=== PATIENT | female | born 1960 | race Caucasian/White ===

== ENCOUNTER → 2017-11-28 | Outpatient (CLI) | payer OTHER ==
[~2017-11-28] MED LIST: METH4PAK4 PO; MOME50SP5; TRAM-10 PO; [UNRECOGNIZED DRUG - OTHER] PO
--- NOTE | 2017-11-28 15:21 | MAMMOGRAPHY REPORT ---
BILATERAL DIGITAL SCREENING MAMMOGRAM TOMOSYNTHESIS WITH CAD: 11/28/2017 CLINICAL HISTORY: Routine screening. Patient has no complaints. TECHNIQUE: Breast tomosynthesis in addition to standard 2D mammography was performed. Current study was also evaluated with a Computer Aided Detection (CAD) system. COMPARISON: Comparison is made to exams dated: 11/10/2015 ultrasound, 11/10/2015 mammogram, 11/01/2015 m ammogram, 10/27/2014 mammogram, 09/01/2013 mammogram, and 08/23/2011 mammogram - [facility] nter. BREAST COMPOSITION: The tissue of both breasts is heterogeneously dense, which may obscure small mas ses. FINDINGS: There are a few benign rim calcifications in the left breast. The grouping of microcalcifi cations in the upper outer posterior left breast has coarsened comparing to prior mammograms and has the appearance of an early rim calcification, suggesting benignity. The 7.4 mm focal asymmetry in th e lower inner left breast appears stable dating back to at least 2013 and with 4 years of stability i s most likely benign. No new suspicious mass, architectural distortion or cluster of microcalcificat ions is seen. IMPRESSION: ACR BI-RADS CATEGORY 1: NEGATIVE There is no mammographic evidence of malignancy. A 1 year screening mammogram is recommended. The pa tient will receive written notification of the results. Approximately 10% of breast cancers are not detected with mammography. A negative mammographic report should not delay biopsy if a clinically suggestive mass is present. Penny Dyer M.D. ay/:11/28/2017 13:02:01 [place] Flaker: Keli Nazario, [facility] letter sent: Normal 1/2 BI-RADS Code: ACR BI-RADS Category 1: Negative
== END | disposition home or self-care (01) ==
LOC: C.MAMM 09:58
PROVIDERS: ATTEND Obstetrics & Gynecology
DX: Z12.31 Encounter for screening mammogram for malignant neoplasm of breast (principal)

== ENCOUNTER 2021-03-19 23:09 | Inpatient (IN) ==
[2021-03-19] MEDS ORDERED: SODIUM CHLORIDE 0.9% 500 ML IV STA (23:33)
[2021-03-19] MEDS ORDERED: SODIUM CHLORIDE 0.9% 1000ML 1,000 ML IV STA (23:33)
[2021-03-19] MEDS ORDERED: HYDROmorphone INJ 0.5 MG/0.5 ML SYR IV STA (23:33)
[2021-03-19] MEDS ORDERED: ONDANSETRON INJ 2 MG/ML 2 ML VIAL IV STA (23:33)
[2021-03-20 01:26] LABS: Basophils # (auto) 0.01 K/uL (0-0.2); Basophils % (auto) 0.1 %; Eosinophils # (auto) 0.07 K/uL (0-0.5); Eosinophils % (auto) 0.7 %; Hematocrit (blood only) 40.8 % (37-47); Hemoglobin 14.9 g/dL (12.0-16.0); Immature Granulocytes # (auto) 0.06 K/uL (0.00-0.02); Immature Granulocytes % (auto) 0.6 %; Lymphocytes # (auto) 0.97 K/uL (1.2-3.4); Lymphocytes % (auto) 9.7 %; Mean Corpuscular Hgb Conc 36.5 g/dL (32-36); Mean Corpuscular Volume 76.7 fL (80-100); Mean Platelet Volume 7.6 fL (7.4-10.4); Monocytes # (auto) 0.91 K/uL (0.11-0.59); Monocytes % (auto) 9.1 %; Neutrophils # (auto) 7.95 K/uL (1.4-6.5); Neutrophils % (auto) 79.8 %; Platelet Count 346 K/uL (130-400); RDW Coefficient of Variation 12.4 % (11.5-14.5); RDW Standard Deviation 34.7 fL (36.4-46.3); Red Blood Count 5.32 M/uL (4.2-5.4); White Blood Count 9.97 K/uL (4.8-10.8)
[2021-03-20] MEDS ORDERED: diphenhydrAMINE 50 MG/ML VIAL IV STA (01:38)
--- NOTE | 2021-03-20 01:39 | Emergency Department Note ---
History of Present Illness General Chief complaint: Abdominal Pain Stated complaint: STOMACH PAIN ON RIGHT SIDE - HER LAST WEEK Source: patient, family () and RN notes reviewed Mode of arrival: ambulatory Limitations: no limitations History of Present Illness Provider complaint: Abdominal pain, constipation Maximum Pain Intensity: 10 This patient is a 60-year-old female who presents to the emergency department with complaints of abdominal pain and constipation. She was here last week for abdominal pain and bloating, told that she had some fecal retention. The patient has been seen by her primary care physician and has been using laxatives and enemas. She states she used 3 enemas this evening and had some liquidy results. Patient states the pain has not resolved. She denies any vomiting but states she has nauseated. She denies any blood in her bowel movements. The pat ient has not had any difficulty with urination. Home Medications Medication Instructions Recorded Confirmed Type 4 Restore 1 tab PO DAILY 03/09/21 03/20/21 History Balance D Vit 5 - 7 tabs PO DAILY 03/09/21 03/20/21 History Eternity Liq 2.5 ml PO DAILY 03/09/21 03/20/21 History Influence Vit 1 tab PO DAILY 03/09/21 03/20/21 History Innerchi Vit 1 tab PO DAILY 03/09/21 03/20/21 History Renorvator 2 1 tab PO DAILY 03/09/21 03/20/21 History Vital Vision Tab 1 tab PO DAILY 03/09/21 03/20/21 History calcium carbonate 500 mg calcium 500 mg PO DAILY 03/09/21 03/20/21 History (1,250 mg) tablet (Calcium 500) cyclobenzaprine 10 mg tablet 10 mg PO TID PRN #14 tab 03/09/21 03/20/21 Rx ibuprofen 200 mg tablet 600 mg PO Q6H PRN 03/09/21 03/20/21 History multivitamin 1 tab PO DAILY 03/09/21 03/20/21 History Allergies Allergy/AdvReac Type Severity Reaction Status Date / Time Penicillins Allergy Severe RASH HIVES Verified 03/20/21 00:08 Sulfa (Sulfonamide Allergy Severe RASH HIVES Verified 03/20/21 00:08 Antibiotics) sulfamethoxazole Allergy Severe RASH HIVES Verified 03/20/21 00:08 trimethoprim Allergy Severe RASH HIVES Verified 03/20/21 00:08 KEFLEX Allergy Severe CHEST Uncoded 03/20/21 00:08 TIGHTNESS SWELLING OF THROAT Past Med/Surg History Medical History Kidney stone Social History Smoking Status: Never smoker Hx Alcohol Use: No Hx Substance Use: No Preferred Language: Persian Communication Ability: Effective Chemical Compounder Required: No Beliefs That Will Affect Care: None Current Living Situation: Spouse Other Information That Helps Us Care for You: No Feels Safe at Home: Yes Safety Concerns: Feels Safe At This Time Review of Systems See HPI for pertinent positives & negatives. and A total of 10 systems reviewed and were otherwise negative Physical Exam Vital Signs Vital Signs - 24 hr 03/19/21 23:14 03/20/21 02:55 03/20/21 02:57 Temperature 36.6 C Temperature Source Temporal Artery Scan Pulse Rate 85 Pulse Rate [Finger] 72 Pulse Rhythm [Finger] Regular Respiratory Rate 18 Respiratory Effort / Characteristics Non-Labored Spontaneous Respiratory Depth Normal Respiratory Pattern Regular Blood Pressure 157/90 H Blood Pressure [Right Arm] 159/86 H Blood Pressure Mean 112 Blood Pressure Mean [Right Arm] 110 Pulse Oximetry 97 96 96 Oxygen Delivery Method Room Air Room Air Room Air Sepsis Recent Fever Within 48 Hours No Sepsis New/Unexplained Change in Mental Status No Sepsis Action Taken by Nursing No Action Required Vital signs reviewed. General: Generally well-appearing 60-year-old female in some discomfort. HEENT: No scleral icterus, PERRLA, neck supple. Atraumatic. Cardiovascular: Regular rate and rhythm, no extra sounds. Pulmonary: Clear to auscultation bilaterally, normal work of breathing. Abdomen: Soft, distended, nontender, positive bowel sounds. Rectal: Small external hemorrhoids, noninflamed, no fissure, no gross blood, guaiac negative stool Musculoskeletal: Atraumatic, no peripheral edema. Neurologic: Patient awake alert and oriented x 3 Skin: Warm, dry, no rash Course Administered Medications Acetaminophen (Acetaminophen 325 Mg Tab) 650 mg PO Q4H PRN PRN Reason: Pain or Fever Stop: 04/19/21 09:31 Last Admin: 03/20/21 10:37 Dose: 650 mg Documented by: [id number] Enoxaparin Sodium (Enoxaparin Inj 40 Mg/0.4 Ml Syr) 40 mg SQ DAILY JEFFERY Stop: 04/19/21 09:59 Last Admin: 03/20/21 10:38 Dose: 40 mg Documented by: [id number] Lactated Ringer's (Lr) 1,000 mls @ 50 mls/hr IV .Q20H JEFFERY Stop: 04/19/21 11:44 Last Admin: 03/20/21 12:08 Dose: 50 mls/hr Documented by: [id number] Morphine Sulfate (Morphine Sulfate 2 Mg/Ml Carp) 1 mg IV Q4 PRN PRN Reason: Pain Stop: 04/03/21 11:43 Last Admin: 03/20/21 15:44 Dose: 1 mg Documented by: [id number] Admin: 03/20/21 12:52 Dose: 1 mg Documented by: [id number] Discontinued Medications Benzocaine/Butamben/Tetracaine HCl (Benzocaine/Tetracain/Butam Can 200 Appln/20 Gm Can) 1 appln EXT NOW STA Stop: 03/20/21 03:45 Last Admin: 03/20/21 04:52 Dose: Not Given Documented by: [id number] Diphenhydramine HCl (Diphenhydramine 50 Mg/Ml Vial) 25 mg IV NOW STA Stop: 03/20/21 01:39 Last Admin: 03/20/21 02:14 Dose: 25 mg Documented by: [id number] Hydromorphone HCl (Hydromorphone Inj 0.5 Mg/0.5 Ml Syr) 0.5 mg IV NOW STA Stop: 03/19/21 23:34 Last Admin: 03/20/21 01:23 Dose: 0.5 mg Documented by: [id number] Hydromorphone HCl (Hydromorphone Inj 0.5 Mg/0.5 Ml Syr) 0.5 mg IV NOW STA Stop: 03/20/21 03:24 Last Admin: 03/20/21 03:39 Dose: 0.5 mg Documented by: [id number] Hydromorphone HCl (Hydromorphone Inj 0.5 Mg/0.5 Ml Syr) 0.5 mg IV NOW STA Stop: 03/20/21 05:44 Last Admin: 03/20/21 05:49 Dose: 0.5 mg Documented by: [id number] Sodium Chloride (Nss 1000ml) 1,000 mls @ 125 mls/hr IV .Q8H STA Stop: 03/20/21 07:32 Last Admin: 03/20/21 02:18 Dose: Not Given Documented by: [id number] Sodium Chloride (Nss) 500 mls @ 999 mls/hr IV .Q31M STA Stop: 03/20/21 00:03 Last Infusion: 03/20/21 02:03 Dose: 0 mls/hr Documented by: [id number] Admin: 03/20/21 01:22 Dose: 999 mls/hr Documented by: [id number] Acetaminophen (Ofirmev) 1,000 mg in 100 mls @ 400 mls/hr IV NOW STA Stop: 03/20/21 02:11 Last Infusion: 03/20/21 02:29 Dose: 0 mls/hr Documented by: [id number] Admin: 03/20/21 02:13 Dose: 400 mls/hr Documented by: [id number] Sodium Chloride (Nss 1000ml) 1,000 mls @ 50 mls/hr IV .Q20H JEFFERY Stop: 04/19/21 06:19 Last Infusion: 03/20/21 10:25 Dose: 0 mls/hr Documented by: [id number] Admin: 03/20/21 06:32 Dose: 50 mls/hr Documented by: [id number] Ioversol (Optiray 320 100ml) 94 ml IV ONCE ONE Stop: 03/20/21 03:12 Last Admin: 03/20/21 03:12 Dose: 94 ml Documented by: [id number] Ondansetron HCl (Ondansetron Inj 2 Mg/Ml 2 Ml Vial) 4 mg IV NOW STA Stop: 03/19/21 23:34 Last Admin: 03/20/21 01:23 Dose: 4 mg Documented by: [id number] Medical Decision Making Differential Diagnosis Appendicitis, PID, infections, diverticulitis, UTI, obstruction, mesenteric isc hemia, aortic pathology, inflammatory bowel disease, renal colic, PUD, pancreatitis, biliary pathology, hernia, volvulus, constipation, as well as other pathologies. Medical Records Attestation: I reviewed the patient's medical records. Home Medications Current Medication List: was personally reviewed by me Laboratory Data Attestation: I reviewed the patient's lab results. Result diagrams: 03/20/21 07:42 07/25/21 14:46 Lab Results 03/20/21 03/20/21 03/20/21 Range/Units 01:14 01:14 01:14 WBC 9.97 (4.8-10.8) K/uL RBC 5.32 (4.2-5.4) M/uL Hgb 14.9 (12.0-16.0) g/dL Hct 40.8 (37-47) % MCV 76.7 L (80-100) fL MCH 28.0 (25-34) pg MCHC 36.5 H (32-36) g/dL RDW Std Deviation 34.7 L (36.4-46.3) fL RDW Coeff of Sharyn 12.4 (11.5-14.5) % Plt Count 346 (130-400) K/uL MPV 7.6 (7.4-10.4) fL Immature Gran % (Auto) 0.6 % Neut % (Auto) 79.8 % Lymph % (Auto) 9.7 % Den[place] % (Auto) 9.1 % Eos % (Auto) 0.7 % Baso % (Auto) 0.1 % Neut # (Auto) 7.95 H (1.4-6.5) K/uL Lymph # (Auto) 0.97 L (1.2-3.4) K/uL Denali # (Auto) 0.91 H (0.11-0.59) K/uL Eos # (Auto) 0.07 (0-0.5) K/uL Baso # (Auto) 0.01 (0-0.2) K/uL Immature Gran # (Auto) 0.06 H (0.00-0.02) K/uL Sodium 114 L* (136-145) mmol/L Potassium 4.2 (3.5-5.1) mmol/L Chloride 79 L (98-107) mmol/L Carbon Dioxide 28 (21-32) mmol/L Anion Gap 7.0 (3-11) BUN 7 (7-18) mg/dl Creatinine 0.57 L (0.6-1.2) mg/dl Est Cr Clr Drug Dosing 91.6 ml/min Est GFR ( Amer) 116.8 ml/min Est GFR (Non-Af Amer) 100.8 ml/min BUN/Creatinine Ratio 11.3 (10-20) Glucose 115 H (70-99) mg/dl Osmolality 244 L (280-300) mOsm/kg Calcium 9.2 (8.5-10.1) mg/dl Total Bilirubin 0.9 (0.2-1) mg/dl AST 28 (15-37) U/L ALT 74 (12-78) U/L Alkaline Phosphatase 126 H (45-117) U/L Total Protein 7.8 (6.4-8.2) gm/dl Albumin 3.7 (3.4-5.0) gm/dl Globulin 4.1 H (2.5-4.0) gm/dl Albumin/Globulin Ratio 0.9 (0.9-2) Lipase 266 (73-393) U/L COVID-19 Eval Order SARS-CoV-2 (PCR) (Negative) 03/20/21 03/20/21 03/20/21 Range/Units 02:26 02:55 02:55 WBC (4.8-10.8) K/uL RBC (4.2-5.4) M/uL Hgb (12.0-16.0) g/dL Hct (37-47) % MCV (80-100) fL MCH (25-34) pg MCHC (32-36) g/dL RDW Std Deviation (36.4-46.3) fL RDW Coeff of Sharyn (11.5-14.5) % Plt Count (130-400) K/uL MPV (7.4-10.4) fL Immature Gran % (Auto) % Neut % (Auto) % Lymph % (Auto) % Denali % (Auto) % Eos % (Auto) % Baso % (Auto) % Neut # (Auto) (1.4-6.5) K/uL Lymph # (Auto) (1.2-3.4) K/uL Denali # (Auto) (0.11-0.59) K/uL Eos # (Auto) (0-0.5) K/uL Baso # (Auto) (0-0.2) K/uL Immature Gran # (Auto) (0.00-0.02) K/uL Sodium 117 L* (136-145) mmol/L Potassium (3.5-5.1) mmol/L Chloride (98-107) mmol/L Carbon Dioxide (21-32) mmol/L Anion Gap (3-11) BUN (7-18) mg/dl Creatinine (0.6-1.2) mg/dl Est Cr Clr Drug Dosing ml/min Est GFR ( Amer) ml/min Est GFR (Non-Af Amer) ml/min BUN/Creatinine Ratio (10-20) Glucose (70-99) mg/dl Osmolality (280-300) mOsm/kg Calcium (8.5-10.1) mg/dl Total Bilirubin (0.2-1) mg/dl AST (15-37) U/L ALT (12-78) U/L Alkaline Phosphatase (45-117) U/L Total Protein (6.4-8.2) gm/dl Albumin (3.4-5.0) gm/dl Globulin (2.5-4.0) gm/dl Albumin/Globulin Ratio (0.9-2) Lipase (73-393) U/L COVID-19 Eval Order Covid19 at [facility] SARS-CoV-2 (PCR) NEGATIVE (Negative) Imaging Data Radiologist's Impression: Abdomen/Pelvis CT 03/19/21 23:33 CT OF THE ABDOMEN AND PELVIS WITH CONTRAST CLINICAL HISTORY: Right lower quadrant abdominal pain. COMPARISON STUDY: CT of the abdomen pelvis March 09, 2021. TECHNIQUE: Following IV administration of 94 mL of Optiray, axial images of the abdomen and pelvis were obtained from the lung bases to the proximal femurs. Images were reviewed in the axial, sagittal, and coronal planes. IV contrast was administered without complication. Automated exposure control was utilized for the study. A dose lowering technique was utilized adhering to the principles of ALARA. CT DOSE: 313.80 mGy.cm FINDINGS: Lung bases are unremarkable. There is a small hiatal hernia. Several subcentimeter hypodense hepatic lesions favor cysts. The spleen, adrenal glands and pancreas are unremarkable. There is no biliary or pancreatic ductal dilatation. Several subcentimeter renal lesions are too small to characterize but favor cysts. Previously described renal calculi are obscured by excreted contrast. There is no hydronephrosis. No pneumatosis, free air or portal venous gas is present. The appendix is normal. The colon is now moderately distended and fluid-filled with transition point at the junction of the descending colon and the sigmoid colon. No lesion at this site is identified by CT. This dilatation is new since CT of March 09, 2021. There is mild wall thickening of the cervical rectum. Major vasculature is patent. No lymphadenopathy. No acute fracture or suspicious lesion is identified within the visualized skeletal structures. IMPRESSION: 1. Moderately distended fluid-filled colon which suggests a diarrheal state. Apparent transition point at the junction of the descending colon and sigmoid colon. No lesion identified by CT. A colonic obstruction is considered less likely but cannot be excluded and radiographic follow-up is recommended to ensure resolution. This finding will be contrast faxed to the ordering provider at time of dictation. 2. Mild wall thickening of the sigmoid colon and rectum which may reflect a coli tis. ACT 112: Negative or not required by law. Electronically signed by: Ramon Swanson M.D. 03/20/2021 7:13 AM Blood Pressure Blood Pressure Findings: Elevated blood pressure Blood Pressure Disposition: further management by hospitalist MDM Narrative This patient was evaluated and appeared to be in some discomfort. IV access was obtained but difficult so delayed. Patient was hydrated with normal saline solution. An order for cardiac monitoring was placed and the patient is noted to be in a sinus rhythm at 82 bpm. Patient was medicated with IV Dilaudid and Zofran for her discomfort. She did receive IV Tylenol for additional pain control and IV Benadryl prior to receiving IV contrast for the CT scan. CT imaging reveals distended fluid-filled colon without evidence of obstruction. Patient stomach is dilated. Laboratory work reveals a profound hyponatremia at 114, likely secondary to laxative and enema overuse. I suspect this is the etio logy of the patient's distended bowel and fluid-filled colon as well. An NG tube was passed to decompress the bowel. IV fluids were stopped and a sodium rechecked. Repeat sodium was 117. Patient's case was discussed with the hospitalist service for further management. Patient and were informed of the findings and agreed with the plan. She was given additional pain medication. 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
[2021-03-20] MEDS ORDERED: ACETAMINOPHEN 1,000 MG/100 ML VIAL IV STA (01:57)
[2021-03-20 02:04] LABS: Albumin Globulin Ratio 0.9 (0.9-2); Albumin Level 3.7 gm/dl (3.4-5.0); BUN Creatinine Ratio 11.3 (10-20); Bilirubin,Total 0.9 mg/dl (0.2-1); Calcium 9.2 mg/dl (8.5-10.1); Creatinine Clr Calc Pharmacy 91.6 ml/min; Est GFR (African American) 116.8 ml/min; Est GFR (Non-African American) 100.8 ml/min; Globulin 4.1 gm/dl (2.5-4.0); Potassium 4.2 mmol/L (3.5-5.1); Total Protein 7.8 gm/dl (6.4-8.2)
[2021-03-20 03:11] LABS: Appearance Urine Clear (Clear); Bilirubin Urine Negative (Negative); Blood Urine Negative (Negative); Color Urine Yellow; Glucose Urine UA Negative (Negative); Ketones Urine Trace (Negative); Leukocyte Esterase Urine Negative (Negative); Nitrite Urine Negative (Negative); Protein Urine Negative (Negative); Specific Gravity Urine 1.005 (1.000-1.030); Urobilinogen Urine Negative (Negative); pH Urine 8.5 (4.5-7.5)
[2021-03-20] MEDS ORDERED: OPTIRAY 320 100ml IV ONE (03:11)
[2021-03-20] MEDS ORDERED: HYDROmorphone INJ 0.5 MG/0.5 ML SYR IV STA ×2 (03:23→05:43)
[2021-03-20] MEDS ORDERED: BENZOCAINE/TETRACAIN/BUTAM CAN 200 APPLN/20 GM CAN EXT STA (03:44)
--- NOTE | 2021-03-20 05:21 | History and Physical Report ---
DATE OF ADMISSION: 03/20/21 CHIEF COMPLAINT: Abdominal pain and constipation. HISTORY OF PRESENT ILLNESS: A 60-year-old female with past medical history significant for constipation, presents with abdominal pain. The patient was here in the ER on 03/09/2021 with the same abdominal pain, bilateral flank pain, nausea and she was evaluated in the ER and CAT scan of the abdomen and pelvis and CT of the chest were done, which were mostly unremarkable except for some constipation and 5 mm pulmonary nodule and left side nephrolithiasis. The patient was discharged home to followup with PCP. She also saw her PCP, on p.o. lactulose. Still she says she did not move her bowels much since last 2 weeks.Had 2 enemas yesterday and she had a small amount of bowel movement, but not much significant. She is also having lot of nausea and she is not able to eat anything. Having abdominal pain which is about 8/10 in severity all over her belly. She came to the ER again today and found to have sodium of 114 and in the ER was given some fluids, before labs and repeat sodium after a couple of hours showed 117. Her sodium was 129 last time she was here in 03/09/2021. We do not have any recent lab work in the [facility]. Denies any blood in the stool. She says she has some hemorrhoids and some blood on the wipes but otherwise no significant bleeding. She is urinating ok but says urine looks somewhat different. No pain while micturating. No chest pain, no shortness of breath, no cough, no fever, no chills, no chest pain, no headache, no earache, no runny nose. She has some blurred vision, no sore throat. She says when she eats, she feels that food is stuck in her throat. Currently, hemodynamics are stable. ALLERGIES: PENICILLIN, SULFA ANTIBIOTICS, KEFLEX. PAST MEDICAL HISTORY: As mentioned above. PAST SURGICAL HISTORY: Biopsy of the left breast mass, colonoscopy, EGD, hysteroscopy, endometrial ablation, excision of sebaceous cyst, ligation of oviducts. MEDICATIONS: As per [facility], she is on Linzess 145 mcg p.o. daily, cyclobenzaprine 10 mg p.o. daily, lactulose 15 mL b.i.d. p.r.n., Zofran 8 mg p.o. q. 8 hours p.r.n., multivitamins 1 tablet daily, ibuprofen p.r.n. FAMILY HISTORY: Significant for sister has breast cancer; uncle has lymphoma; father has diabetes and diverticulitis; mother has diverticulitis and osteoporosis. SOCIAL HISTORY: . Quit smoking in 1989, smoked 1 pack a day for 10 years. No alcohol use. No drug use. REVIEW OF SYSTEMS: As per HPI. Rest of review of systems is negative. PHYSICAL EXAMINATION: GENERAL: The patient is of moderate build, not in acute distress. VITAL SIGNS: Temperature 36.6, pulse 72, respiratory rate 18, blood pressure 115/86, oxygen 96% on room air. HEENT: Pupils equal, round and reactive to light. Oral mucosa moist. NECK: No JVD, no neck masses. HEART: S1 and S2 heard. Regular rate and rhythm. No murmur, no gallop. RESPIRATORY: Normal AP diameter. No accessory muscle use. No wheezing, no crackles. ABDOMEN: Soft, bowel sounds present. Diffuse tenderness, guarding present. No rigidity, no distention. CENTRAL NERVOUS SYSTEM: Cranial nerves II-XII grossly intact, nonfocal. EXTREMITIES: No edema, no erythema. LABORATORY DATA: WBC 9.9, hemoglobin 14.9, hematocrit 40.8, platelets 346. Sodium was 114, currently 117, potassium 4.2, chloride 79, bicarbonate 28, BUN 7, creatinine 0.5, serum glucose 115, calcium 9.2, total bilirubin 0.9, AST 28, ALT 74, alkaline phosphatase 126, lipase 266. Urinalysis: Trace ketones. Urine pH is elevated at 8.5. SARS-CoV-2 PCR negative. IMAGING DATA: CT of the abdomen and pelvis report is pending. ASSESSMENT AND PLAN: This 60-year-old female presents with ongoing constipation, abdominal pain. 1. Constipation, abdominal pain. Abdominal pain etiology unclear. The patient has a history of constipation but this is the worst she had. After start of stool softeners and enema she had a couple of bowel movements today, but not much. because of ongoing constipation and abdominal pain will consult GI. We will follow the CAT scan results. Monitor in the med tele. 2. Hyponatremia. When she came in sodium of 114, last time when she was here in 03/09/2021 it was 129. With some fluids it increased to 117 in the ER. The patient has nausea. Probably from poor oral intake To correct sodium slowly not more than 6-8 meq per day. We will follow BMP q. [address] on gentle fluids, normal saline 50 mL per hour. Follow urine osmolality, serum osmolality and urine sodium levels. We will consult nephrology to help with correction of the sodium. 3. Deep venous thrombosis prophylaxis. Sequential compression devices for Lovenox. DISPOSITION: Closely monitor in the med tele. Level 1 full code. Expect to discharge home and follow with family doctor. Job ID: [id number] [facility]
[2021-03-20] MEDS ORDERED: SODIUM CHLORIDE 0.9% 1000ML 1,000 ML IV SCH (06:20)
--- NOTE | 2021-03-20 07:14 | CT Scan Report ---
CT OF THE ABDOMEN AND PELVIS WITH CONTRAST CLINICAL HISTORY: Right lower quadrant abdominal pain. COMPARISON STUDY: CT of the abdomen pelvis March 09, 2021. TECHNIQUE: Following IV administration of 94 mL of Optiray, axial images of the abdomen and pelvis we re obtained from the lung bases to the proximal femurs. Images were reviewed in the axial, sagittal, and coronal planes. IV contrast was administered without complication. Automated exposure control wa s utilized for the study. A dose lowering technique was utilized adhering to the principles of ALARA . CT DOSE: 313.80 mGy.cm FINDINGS: Lung bases are unremarkable. There is a small hiatal hernia. Several subcentimeter hypodens e hepatic lesions favor cysts. The spleen, adrenal glands and pancreas are unremarkable. There is no biliary or pancreatic ductal dilatation. Several subcentimeter renal lesions are too small to charact erize but favor cysts. Previously described renal calculi are obscured by excreted contrast. There is no hydronephrosis. No pneumatosis, free air or portal venous gas is present. The appendix is normal. The colon is now moderately distended and fluid-filled with transition point at the junction of the descending colon and the sigmoid colon. No lesion at this site is identified by CT. This dilatation i s new since CT of March 09, 2021. There is mild wall thickening of the cervical rectum. Major vasculat ure is patent. No lymphadenopathy. No acute fracture or suspicious lesion is identified within the vi sualized skeletal structures. IMPRESSION: 1. Moderately distended fluid-filled colon which suggests a diarrheal state. Apparent transition poin t at the junction of the descending colon and sigmoid colon. No lesion identified by CT. A colonic ob struction is considered less likely but cannot be excluded and radiographic follow-up is recommended to ensure resolution. This finding will be contrast faxed to the ordering provider at time of dictati on. 2. Mild wall thickening of the sigmoid colon and rectum which may reflect a colitis. ACT 112: Negative or not required by law. Electronically signed by: Ramon Swanson M.D. 03/20/2021 7:13 AM
[2021-03-20 07:53] LABS: Basophils # (auto) 0.01 K/uL (0-0.2); Basophils % (auto) 0.1 %; Eosinophils # (auto) 0.15 K/uL (0-0.5); Eosinophils % (auto) 1.5 %; Hematocrit (blood only) 41.3 % (37-47); Hemoglobin 15.1 g/dL (12.0-16.0); Immature Granulocytes # (auto) 0.07 K/uL (0.00-0.02); Immature Granulocytes % (auto) 0.7 %; Lymphocytes # (auto) 1.07 K/uL (1.2-3.4); Lymphocytes % (auto) 10.6 %; Mean Corpuscular Hemoglobin 27.8 pg (25-34); Mean Corpuscular Hgb Conc 36.6 g/dL (32-36); Mean Corpuscular Volume 75.9 fL (80-100); Mean Platelet Volume 7.8 fL (7.4-10.4); Monocytes # (auto) 0.76 K/uL (0.11-0.59); Monocytes % (auto) 7.5 %; Neutrophils # (auto) 8.04 K/uL (1.4-6.5); Neutrophils % (auto) 79.6 %; Platelet Count 307 K/uL (130-400); RDW Coefficient of Variation 12.5 % (11.5-14.5); RDW Standard Deviation 34.5 fL (36.4-46.3); Red Blood Count 5.44 M/uL (4.2-5.4)
[2021-03-20 08:26] LABS: Est GFR (African American) 116.1 ml/min; Est GFR (Non-African American) 100.2 ml/min; Magnesium 2.3 mg/dl (1.8-2.4); Potassium 3.9 mmol/L (3.5-5.1)
[2021-03-20 08:36] LABS: BUN Creatinine Ratio 8.6 (10-20); Calcium 9.5 mg/dl (8.5-10.1)
[2021-03-20] MEDS ORDERED: NITROGLYCERIN SL 0.4 MG/TAB TAB SL PRN (09:32)
[2021-03-20] MEDS: ACETAMINOPHEN 325 MG TAB PO PRN (10:37)
--- NOTE | 2021-03-20 10:37 | Gastrointestinal Consultation ---
Date of Consultation March 20, 2021 Assessment & Plan (1) Acute hyponatremia: Patient presenting with constipation and abdominal discomfort. She is found to have a markedly low sodium level. Perhaps this is contributing to her present symptoms of constipation. I think the first goal of therapy should be to correct the patient's electrolytes, would double check to be sure that her magnesium levels were normal as well. Perhaps the patient has SIADH and may benefit from evaluation by endocrinology or perhaps even pulmonary given the lung nodule seen on her CT scan in the recent past. Recommendations Continue to correct sodium Consider obtaining a magnesium level if not done already Consider pulmonary consultation for evaluation of the lung nodules Consider an endocrinology evaluation for SIADH Once electrolytes corrected would then recommend use of MiraLAX 17 g 3 times daily for 1 week and Colace 200 mg/day Patient may ultimately benefit from a repeat colonoscopy History of Present Illness Reason for Consultation: Constipation Requesting Physician: Dr. Dean Attending Physician: Marcelino Dean MD History of Present Illness The patient is a 60-year-old female who notes that she has had worsening constipation over the last 6 to 9 months. She did have a prior colonoscopy performed in [address] Veena Alvarado without any specific findings. She notes that she was recently started on both lactulose and Linzess by her primary care provider without much benefit. She had been using enemas at home over the last few days but notes that her symptoms were refractory to this. Of note during her initial evaluation she was found to have a slight reduction in her sodium which is now dangerously low. The patient reports no new antibiotics or supplements being used. The patient reported having nausea and bloating and therefore had an NG tube placed last evening while in the emergency room. She notes this initially helped her symptoms however they seem to be progressing this morning. The patient is a smoker with a history of emphysema. She did have a CT scan of her chest which showed several pulmonary nodules. Allergies Allergy/AdvReac Type Severity Reaction Status Date / Time Penicillins Allergy Severe RASH HIVES Verified 03/20/21 00:08 Sulfa (Sulfonamide Allergy Severe RASH HIVES Verified 03/20/21 00:08 Antibiotics) sulfamethoxazole Allergy Severe RASH HIVES Verified 03/20/21 00:08 trimethoprim Allergy Severe RASH HIVES Verified 03/20/21 00:08 KEFLEX Allergy Severe CHEST Uncoded 03/20/21 00:08 TIGHTNESS SWELLING OF THROAT Home Medications Medication Instructions Recorded Confirmed Type 4 Restore 1 tab PO DAILY 03/09/21 03/20/21 History Balance D Vit 5 - 7 tabs PO DAILY 03/09/21 03/20/21 History Eternity Liq 2.5 ml PO DAILY 03/09/21 03/20/21 History Influence Vit 1 tab PO DAILY 03/09/21 03/20/21 History Innerchi Vit 1 tab PO DAILY 03/09/21 03/20/21 History Renorvator 2 1 tab PO DAILY 03/09/21 03/20/21 History Vital Vision Tab 1 tab PO DAILY 03/09/21 03/20/21 History calcium carbonate 500 mg calcium 500 mg PO DAILY 03/09/21 03/20/21 History (1,250 mg) tablet (Calcium 500) cyclobenzaprine 10 mg tablet 10 mg PO TID PRN #14 tab 03/09/21 03/20/21 Rx ibuprofen 200 mg tablet 600 mg PO Q6H PRN 03/09/21 03/20/21 History multivitamin 1 tab PO DAILY 03/09/21 03/20/21 History Patient History Medical History Kidney stone Social History Smoking Status: Never smoker Hx Alcohol Use: No Hx Substance Use: No Preferred Language: Ethiopian Communication Ability: Effective Institute Director Required: No Beliefs That Will Affect Care: None Current Living Situation: Spouse Other Information That Helps Us Care for You: No Feels Safe at Home: Yes Safety Concerns: Feels Safe At This Time Review of Systems Constitutional: + malaise; no fever, no sweats, no body aches and no weight loss Eyes: no diplopia Ear, Nose, Mouth, Throat: no ear trauma Respiratory: no change in sputum and no hemoptysis Cardiovascular: no chest pain with activity and no dyspnea at rest Gastrointestinal: + abdominal pain, + bloating, + nausea and + constipation Genitourinary: no urinary frequency Musculoskeletal: no radicular pain Integumentary: no rash Neurologic: no falls and no paralysis Psychiatric: no hopelessness Endocrine: no polydipsia Hematologic / Lymphatic: no coagulopathy Physical Exam Constitutional: WD/WN, vitals as above Eyes: PERRL, conjunctivae normal, anicteric sclerae Neck: trachea midline, no thyromegaly Respiratory: normal respiratory effort, lungs clear to auscultation Cardiovascular: Rate/Rhythm: regular rate Gastrointestinal (Abdomen): Percussion/Palpation: + abdomen tender and abdomen soft; no guarding and abdomen not rigid Musculoskeletal: no cyanosis or clubbing, extremities motor strength 5/5 Skin: no rashes, warm and dry Neurologic: Speech / Cognition: normal speech Psychiatric: Orientation: oriented x 3 Results & Data ([facility]) Vital Signs (Past 12 Hours) Vital Signs Temp Pulse Pulse Resp BP BP Pulse Ox 03/20/21 09:32 36.5 C 75 18 162/87 H 98 03/20/21 06:07 69 156/93 H 98 03/20/21 04:55 82 152/89 H 99 03/20/21 02:57 96 03/20/21 02:55 72 159/86 H 96 03/19/21 23:14 36.6 C 85 18 157/90 H 97 Laboratory Results Laboratory Results - last 24 hr 03/20/21 03/20/21 03/20/21 01:14 01:14 01:14 WBC 9.97 RBC 5.32 Hgb 14.9 Hct 40.8 MCV 76.7 L MCH 28.0 MCHC 36.5 H RDW Std Deviation 34.7 L RDW Coeff of Sharyn 12.4 Plt Count 346 MPV 7.6 Immature Gran % (Auto) 0.6 Neut % (Auto) 79.8 Lymph % (Auto) 9.7 [place] % (Auto) 9.1 Eos % (Auto) 0.7 Baso % (Auto) 0.1 Neut # (Auto) 7.95 H Lymph # (Auto) 0.97 L [place] # (Auto) 0.91 H Eos # (Auto) 0.07 Baso # (Auto) 0.01 Immature Gran # (Auto) 0.06 H Sodium 114 L* Potassium 4.2 Chloride 79 L Carbon Dioxide 28 Anion Gap 7.0 BUN 7 Creatinine 0.57 L Est Cr Clr Drug Dosing 91.6 Est GFR ( Amer) 116.8 Est GFR (Non-Af Amer) 100.8 BUN/Creatinine Ratio 11.3 Glucose 115 H Osmolality 244 L Calcium 9.2 Magnesium Total Bilirubin 0.9 AST 28 ALT 74 Alkaline Phosphatase 126 H Total Protein 7.8 Albumin 3.7 Globulin 4.1 H Albumin/Globulin Ratio 0.9 Lipase 266 Urine Color Urine Appearance Urine pH Ur Specific [place] Urine Protein Urine Glucose (UA) Urine Ketones Urine Blood Urine Nitrite Urine Bilirubin Urine Urobilinogen Ur Leukocyte Esterase Urine Osmolality Ur Random Sodium COVID-19 Eval Order SARS-CoV-2 (PCR) 03/20/21 03/20/21 03/20/21 02:26 02:55 02:55 WBC RBC Hgb Hct MCV MCH MCHC RDW Std Deviation RDW Coeff of Sharyn Plt Count MPV Immature Gran % (Auto) Neut % (Auto) Lymph % (Auto) [place] % (Auto) Eos % (Auto) Baso % (Auto) Neut # (Auto) Lymph # (Auto) [place] # (Auto) Eos # (Auto) Baso # (Auto) Immature Gran # (Auto) Sodium 117 L* Potassium Chloride Carbon Dioxide Anion Gap BUN Creatinine Est Cr Clr Drug Dosing Est GFR ( Amer) Est GFR (Non-Af Amer) BUN/Creatinine Ratio Glucose Osmolality Calcium Magnesium Total Bilirubin AST ALT Alkaline Phosphatase Total Protein Albumin Globulin Albumin/Globulin Ratio Lipase Urine Color Urine Appearance Urine pH Ur Specific [place] Urine Protein Urine Glucose (UA) Urine Ketones Urine Blood Urine Nitrite Urine Bilirubin Urine Urobilinogen Ur Leukocyte Esterase Urine Osmolality Ur Random Sodium COVID-19 Eval Order Covid19 at [facility] SARS-CoV-2 (PCR) NEGATIVE 03/20/21 03/20/21 03/20/21 07:42 07:42 Unknown WBC 10.10 RBC 5.44 H Hgb 15.1 Hct 41.3 MCV 75.9 L MCH 27.8 MCHC 36.6 H RDW Std Deviation 34.5 L RDW Coeff of Sharyn 12.5 Plt Count 307 MPV 7.8 Immature Gran % (Auto) 0.7 Neut % (Auto) 79.6 Lymph % (Auto) 10.6 [place] % (Auto) 7.5 Eos % (Auto) 1.5 Baso % (Auto) 0.1 Neut # (Auto) 8.04 H Lymph # (Auto) 1.07 L [place] # (Auto) 0.76 H Eos # (Auto) 0.15 Baso # (Auto) 0.01 Immature Gran # (Auto) 0.07 H Sodium 117 L* Potassium 3.9 Chloride 82 L Carbon Dioxide 28 Anion Gap 8.0 BUN 5 L Creatinine 0.58 L Est Cr Clr Drug Dosing 90.0 Est GFR ( Amer) 116.1 Est GFR (Non-Af Amer) 100.2 BUN/Creatinine Ratio 8.6 L Glucose 101 H Osmolality Calcium 9.5 Magnesium 2.3 Total Bilirubin AST ALT Alkaline Phosphatase Total Protein Albumin Globulin Albumin/Globulin Ratio Lipase Urine Color Yellow Urine Appearance Clear Urine pH 8.5 H Ur Specific [place] 1.005 Urine Protein Negative Urine Glucose (UA) Negative Urine Ketones Trace H Urine Blood Negative Urine Nitrite Negative Urine Bilirubin Negative Urine Urobilinogen Negative Ur Leukocyte Esterase Negative Urine Osmolality Ur Random Sodium COVID-19 Eval Order SARS-CoV-2 (PCR) 03/20/21 03/20/21 Unknown Unknown WBC RBC Hgb Hct MCV MCH MCHC RDW Std Deviation RDW Coeff of Sharyn Plt Count MPV Immature Gran % (Auto) Neut % (Auto) Lymph % (Auto) [place] % (Auto) Eos % (Auto) Baso % (Auto) Neut # (Auto) Lymph # (Auto) [place] # (Auto) Eos # (Auto) Baso # (Auto) Immature Gran # (Auto) Sodium Potassium Chloride Carbon Dioxide Anion Gap BUN Creatinine Est Cr Clr Drug Dosing Est GFR ( Amer) Est GFR (Non-Af Amer) BUN/Creatinine Ratio Glucose Osmolality Calcium Magnesium Total Bilirubin AST ALT Alkaline Phosphatase Total Protein Albumin Globulin Albumin/Globulin Ratio Lipase Urine Color Urine Appearance Urine pH Ur Specific [place] Urine Protein Urine Glucose (UA) Urine Ketones Urine Blood Urine Nitrite Urine Bilirubin Urine Urobilinogen Ur Leukocyte Esterase Urine Osmolality 260 L Ur Random Sodium 66 COVID-19 Eval Order SARS-CoV-2 (PCR) Diagnostic Findings CT OF THE ABDOMEN AND PELVIS WITH CONTRAST CLINICAL HISTORY: Right lower quadrant abdominal pain. COMPARISON STUDY: CT of the abdomen pelvis March 09, 2021. TECHNIQUE: Following IV administration of 94 mL of Optiray, axial images of the abdomen and pelvis were obtained from the lung bases to the proximal femurs. Images were reviewed in the axial, sagittal, and coronal planes. IV contrast was administered without complication. Automated exposure control was utilized for the study. A dose lowering technique was utilized adhering to the principles of ALARA. CT DOSE: 313.80 mGy.cm FINDINGS: Lung bases are unremarkable. There is a small hiatal hernia. Several subcentimeter hypodense hepatic lesions favor cysts. The spleen, adrenal glands and pancreas are unremarkable. There is no biliary or pancreatic ductal dilatation. Several subcentimeter renal lesions are too small to characterize but favor cysts. Previously described renal calculi are obscured by excreted contrast. There is no hydronephrosis. No pneumatosis, free air or portal venous gas is present. The appendix is normal. The colon is now moderately distended and fluid-filled with transition point at the junction of the descending colon and the sigmoid colon. No lesion at this site is identified by CT. This dilatation is new since CT of March 09, 2021. There is mild wall thickening of the cervical rectum. Major vasculature is patent. No lymphadenopathy. No acute fracture or suspicious lesion is identified within the visualized skeletal structures. IMPRESSION: 1. Moderately distended fluid-filled colon which suggests a diarrheal state. Apparent transition point at the junction of the descending colon and sigmoid colon. No lesion identified by CT. A colonic obstruction is considered less likely but cannot be excluded and radiographic follow-up is recommended to ensure resolution. This finding will be contrast faxed to the ordering provider at time of dictation. 2. Mild wall thickening of the sigmoid colon and rectum which may reflect a colitis.
[2021-03-20] MEDS: ENOXAPARIN INJ 40 MG/0.4 ML SYR SQ SCH (10:38)
[2021-03-20 11:21] LABS: Calcium 9.2 mg/dl (8.5-10.1); Creatinine Clr Calc Pharmacy 94.9 ml/min; Est GFR (African American) 118.2 ml/min; Est GFR (Non-African American) 101.9 ml/min; Potassium 3.8 mmol/L (3.5-5.1)
--- NOTE | 2021-03-20 11:42 | Nephrology Consultation ---
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 Admission sodium was 114. Sodium is improved to 117. Target is 120 by midnight today. Serum was white was 244. Urine sodium was 66 and urine osmolality of 260. -Will give Ringer's lactate at 50 mL/h since patient is n.p.o. due to constipat ion. If sodium drops while on the Ringer lactate, will change to 3% saline. -Continue to monitor Na, K q4h -Check magnesium and phos with next labs (2) Kidney stone: Patient with nonobstructive 4 mm kidney stone. She will need outpatient work-up for stone and prevention. History of Present Illness Reason for Consultation: Hyponatremia Requesting Physician: Marcelino Dean MD Attending Physician: Marcelino Dean MD History of Present Illness This is a 60-year-old female with recurrent episodes of constipation who was adm itted with the generalized abdominal pain found to have hyponatremia with sodium of 114. Patient was in the emergency room on 03/09/2021 and her sodium was 129. Since going home she has been having intermittent abdominal pain. She has not been drinking well. In the past she used to drink at least a gallon of water daily but recently she has been drinking only half of that. She has not been eating well. She also reports difficulty swallowing. She has not moved her bowels in 10 days. She vomited for 2 days last week. No shortness of breath. Main complaint today is generalized abdominal pain worse in the epigastrium. CT abdomen showed left 4 mm kidney stone and a 5 mm pulmonary nodule and dilated colon. Allergies Allergy/AdvReac Type Severity Reaction Status Date / Time Penicillins Allergy Severe RASH HIVES Verified 03/20/21 00:08 Sulfa (Sulfonamide Allergy Severe RASH HIVES Verified 03/20/21 00:08 Antibiotics) sulfamethoxazole Allergy Severe RASH HIVES Verified 03/20/21 00:08 trimethoprim Allergy Severe RASH HIVES Verified 03/20/21 00:08 KEFLEX Allergy Severe CHEST Uncoded 03/20/21 00:08 TIGHTNESS SWELLING OF THROAT Home Medications Medication Instructions Recorded Confirmed Type 4 Restore 1 tab PO DAILY 03/09/21 03/20/21 History Balance D Vit 5 - 7 tabs PO DAILY 03/09/21 03/20/21 History Eternity Liq 2.5 ml PO DAILY 03/09/21 03/20/21 History Influence Vit 1 tab PO DAILY 03/09/21 03/20/21 History Innerchi Vit 1 tab PO DAILY 03/09/21 03/20/21 History Renorvator 2 1 tab PO DAILY 03/09/21 03/20/21 History Vital Vision Tab 1 tab PO DAILY 03/09/21 03/20/21 History calcium carbonate 500 mg calcium 500 mg PO DAILY 03/09/21 03/20/21 History (1,250 mg) tablet (Calcium 500) cyclobenzaprine 10 mg tablet 10 mg PO TID PRN #14 tab 03/09/21 03/20/21 Rx ibuprofen 200 mg tablet 600 mg PO Q6H PRN 03/09/21 03/20/21 History multivitamin 1 tab PO DAILY 03/09/21 03/20/21 History Patient History Medical History Kidney stone Social History Smoking Status: Never smoker Hx Alcohol Use: No Hx Substance Use: No Preferred Language: Andorran Communication Ability: Effective Coffee Maker Required: No Beliefs That Will Affect Care: None Current Living Situation: Spouse Other Information That Helps Us Care for You: No Feels Safe at Home: Yes Safety Concerns: Feels Safe At This Time Review of Systems Review of Systems: All other systems were reviewed and negative except as noted in HPI Physical Exam Physical Exam: General exam: Appears comfortable, no acute distress. Has NG tube HEENT: Pupils are equal and reactive to light Neck: No JVD, neck is supple trachea is midline Respiratory system: Clear breath sounds bilaterally. Gastrointestinal: Generalized abdominal tenderness, bowel sounds are present CVS: Regular rate and rhythm. No murmurs, rubs or gallops Musculoskeletal: No joint or muscle tenderness Extremities: Non tender, no edema, peripheral pulses are present Neuro: Oriented, no tremors, no focal neurological deficits Skin: No rashes Results & Data ([facility]) Vital Signs (Past 12 Hours) Vital Signs Temp Pulse Resp BP Pulse Ox 03/20/21 11:04 36.4 C L 72 16 134/81 96 03/20/21 09:32 36.5 C 75 18 162/87 H 98 03/20/21 06:07 69 156/93 H 98 03/20/21 04:55 82 152/89 H 99 03/20/21 02:57 96 03/20/21 02:55 72 159/86 H 96 Laboratory Results 03/20/21 10:46 03/20/21 03/20/21 03/20/21 01:14 01:14 07:42 WBC 9.97 10.10 RBC 5.32 5.44 H MCV 76.7 L 75.9 L MCH 28.0 27.8 MCHC 36.5 H 36.6 H RDW Std Deviation 34.7 L 34.5 L RDW Coeff of Sharyn 12.4 12.5 Plt Count 346 307 MPV 7.6 7.8 Albumin 3.7
[2021-03-20] MEDS: LACTATED RINGER'S 1,000 ML IV SCH (12:08)
[2021-03-20] MEDS: MoRPHine SULFATE 2 MG/ML CARP IV PRN ×3 (12:52→19:56)
[2021-03-20 16:01] LABS: BUN Creatinine Ratio 11.6 (10-20); Calcium 9.3 mg/dl (8.5-10.1); Creatinine Clr Calc Pharmacy 100.4 ml/min; Est GFR (African American) 120.4 ml/min; Est GFR (Non-African American) 103.9 ml/min; Potassium 4.4 mmol/L (3.5-5.1)
[2021-03-20 19:40] LABS: BUN Creatinine Ratio 9.8 (10-20); Calcium 9.3 mg/dl (8.5-10.1); Creatinine Clr Calc Pharmacy 88.5 ml/min; Est GFR (African American) 115.5 ml/min; Est GFR (Non-African American) 99.6 ml/min; Potassium 4.1 mmol/L (3.5-5.1)
[2021-03-20] MEDS: ONDANSETRON INJ 2 MG/ML 2 ML VIAL IV PRN (19:51)
[2021-03-20 23:57] LABS: BUN Creatinine Ratio 12.3 (10-20); Calcium 9.4 mg/dl (8.5-10.1); Creatinine Clr Calc Pharmacy 96.6 ml/min; Est GFR (African American) 118.9 ml/min; Est GFR (Non-African American) 102.6 ml/min; Potassium 4.1 mmol/L (3.5-5.1)
[2021-03-21] MEDS: MoRPHine SULFATE 2 MG/ML CARP IV PRN ×2 (00:05→05:15)
[2021-03-21] MEDS: ONDANSETRON INJ 2 MG/ML 2 ML VIAL IV PRN (03:05)
[2021-03-21] MEDS: LACTATED RINGER'S 1,000 ML IV SCH (05:59)
[2021-03-21] MEDS: ENOXAPARIN INJ 40 MG/0.4 ML SYR SQ SCH (08:53)
[2021-03-21 09:03] LABS: BUN Creatinine Ratio 13.6 (10-20); Calcium 9.7 mg/dl (8.5-10.1); Creatinine Clr Calc Pharmacy 81.6 ml/min; Est GFR (African American) 116.1 ml/min; Est GFR (Non-African American) 100.2 ml/min; Potassium 4.3 mmol/L (3.5-5.1)
--- NOTE | 2021-03-21 09:22 | XRay Report ---
KUB HISTORY: Constipation. Generalized abdominal pain COMPARISON: Abdomen and pelvis CT 03/20/2021. FINDINGS: Mildly dilated gas and fluid-filled colon is again noted to the level of the junction of th e descending colon/sigmoid colon. This is similar to the prior study. Therefore, a partial large [place] l obstruction cannot be excluded. No renal calculi. No ureteral calculi. No pneumoperitoneum or pneu matosis. IMPRESSION: Mildly dilated gas and fluid-filled colon is again noted to the level of the junction of the descendi ng colon/sigmoid colon. This is similar to the prior study. Therefore, a partial large bowel obstruct ion cannot be excluded. Consider follow-up colonoscopy for further evaluation. ACT 112: Negative or not required by law. Electronically signed by: Maurice Asif M.D. 03/21/2021 9:21 AM
--- NOTE | 2021-03-21 09:37 | Gastroenterology Progress Note ---
Date of Service March 21, 2021 Assessment & Plan (1) Constipation: Plan: 60 y/o female admitted with acute hyponatremia, abd discomfort, constipation. NGT has been removed, pt feels improved overall; still no BM. Abd soft. Hyponatremia improving (SIADH, poor PO intake?). Repeat KUB pending. On admission CTAP with: 1. Moderately distended fluid-filled colon which suggests a diarrheal state. Apparent transition point at the junction of the descending colon and sigmoid colon. No lesion identified by CT. A colonic obstruction is considered less likely but cannot be excluded and radiographic follow-up is recommended to ensure resolution. This finding will be contrast faxed to the ordering provider at time of dictation. 2. Mild wall thickening of the sigmoid colon and rectum which may reflect a colitis. - Await KUB - Continue to correct sodium - Keep potassium and magnesium level WNL - Keep NPO - Once electrolytes improve pt would benefit from bowel regimen on a routine basis - May ultimately benefit from repeat colonoscopy; last one was 2018 - had inflammatory polyp ATtg add: I interviewed and examined pt, reviewed chart and labs. Consider flex sig to eval for obstruction. (2) Acute hyponatremia: Admission and Anticipated Discharge Date Admission Date: March 20, 2021 Subjective Pt seen and examined, chart reviewed. She is feeling much better this AM; having a lot less abd pain, improved bloating, no distention. NGT out; still no BM, flatus. Last BM was small and liquid on 03/19, prior to admission. Prior to that was only having BMs maybe once a week. Not taking anything for this; has a history of chronic constipation; had seen outpt GI in the past. Denies nausea, vomiting, hematochezia, hematemesis, melena, fever, chills, CP, SOB. Review of Systems Review of Systems: As per HPI Physical Exam Constitutional: WD/WN, vitals as above Respiratory: normal respiratory effort Cardiovascular: Rate/Rhythm: regular rate and regular rhythm Gastrointestinal (Abdomen): Abd soft, mild generalized tenderness, no rebound, guarding, distention, BS somewhat hypoactive. Musculoskeletal: no edema Skin: no rashes, warm and dry Results & Data ([facility]) Vital Signs (Past 12 Hours) Vital Signs Temp Pulse Pulse Resp BP Pulse Ox 03/21/21 07:19 94 H 03/21/21 03:20 36.8 C 104 H 20 138/88 96 03/20/21 23:05 36.6 C 90 20 145/87 H 96 03/20/21 22:18 87 Laboratory Results 03/21/21 03/21/21 03/20/21 Range/Units 10:27 08:08 23:07 Sodium 123 L 122 L 121 L (136-145) mmol/L Potassium 4.0 4.3 4.1 (3.5-5.1) mmol/L Chloride 86 L 86 L 84 L (98-107) mmol/L Carbon Dioxide 29 27 28 (21-32) mmol/L Anion Gap 8.0 9.0 10.0 (3-11) BUN 8 8 7 (7-18) mg/dl Creatinine 0.58 L 0.58 L 0.54 L (0.6-1.2) mg/dl Est Cr Clr Drug Dosing 81.6 81.6 96.6 ml/min Est GFR ( Amer) 116.1 116.1 118.9 ml/min Est GFR (Non-Af Amer) 100.2 100.2 102.6 ml/min BUN/Creatinine Ratio 14.6 13.6 12.3 (10-20) Glucose 98 96 102 H (70-99) mg/dl Calcium 9.5 9.7 9.4 (8.5-10.1) mg/dl 03/20/21 03/20/21 03/20/21 Range/Units 19:10 14:46 10:46 Sodium 120 L 117 L* 117 L* (136-145) mmol/L Potassium 4.1 4.4 D 3.8 (3.5-5.1) mmol/L Chloride 84 L 82 L 83 L (98-107) mmol/L Carbon Dioxide 29 28 29 (21-32) mmol/L Anion Gap 7.0 7.0 4.0 (3-11) BUN 6 L 6 L 5 L (7-18) mg/dl Creatinine 0.59 L 0.52 L 0.55 L (0.6-1.2) mg/dl Est Cr Clr Drug Dosing 88.5 100.4 94.9 ml/min Est GFR ( Amer) 115.5 120.4 118.2 ml/min Est GFR (Non-Af Amer) 99.6 103.9 101.9 ml/min BUN/Creatinine Ratio 9.8 L 11.6 9.0 L (10-20) Glucose 105 H 100 H 110 H (70-99) mg/dl Calcium 9.3 9.3 9.2 (8.5-10.1) mg/dl
--- NOTE | 2021-03-21 10:12 | Nephrology Progress Note ---
Date of Service March 21, 2021 Assessment & Plan Admission and Anticipated Discharge Date Admission Date: March 20, 2021 Subjective NO new issues. Less nausea and burping. NG tube out. Still NO BM. Na rising nicely. General exam: Appears comfortable, no acute distress. Has NG tube HEENT: Pupils are equal and reactive to light Neck: No JVD, neck is supple trachea is midline Respiratory system: Clear breath sounds bilaterally. Gastrointestinal: Generalized abdominal tenderness, bowel sounds are present CVS: Regular rate and rhythm. No murmurs, rubs or gallops Musculoskeletal: No joint or muscle tenderness Extremities: Non tender, no edema, peripheral pulses are present Neuro: Oriented, no tremors, no focal neurological deficits Skin: No rashes labs na 122 now. A/p Hyponatremia: sec to SIADH with volume Depletion combination. Rec na rising nicely to 122 now. Continue RL at 50 per hr. Labs can be q8hr now. Results & Data ([facility]) Vital Signs (Past 12 Hours) Vital Signs Temp Pulse Pulse Resp BP Pulse Ox 03/21/21 07:19 94 H 03/21/21 03:20 36.8 C 104 H 20 138/88 96 03/20/21 23:05 36.6 C 90 20 145/87 H 96 03/20/21 22:18 87
[2021-03-21] MEDS ORDERED: AMOXICILLIN/CLAVULANATE 875 MG TAB PO ONE (10:53)
[2021-03-21 11:13] LABS: BUN Creatinine Ratio 14.6 (10-20); Calcium 9.5 mg/dl (8.5-10.1); Creatinine Clr Calc Pharmacy 81.6 ml/min; Est GFR (African American) 116.1 ml/min; Est GFR (Non-African American) 100.2 ml/min
--- NOTE | 2021-03-21 11:34 | Surgery Consultation ---
Date of Consultation March 21, 2021 Assessment & Plan (1) Constipation: This is a 60y F with no significant PMH who presented to the [facility] ED on 03/20/21 with complaints of abdominal pain and constipation. Patient has had worsening constipation over the last 3 weeks, unrelieved by laxatives, including multiple enema's and suppositories. A CT a/p performed revealed "moderately distended fluid-filled colon which suggests a diarrheal state. Apparent transition point at the junction of the descending colon and sigmoid colon. No lesion identified by CT. A colonic obstruction is considered less likely but cannot be excluded." KUB obtained today showed confirmed mildly dilated gas and fluid-filled colon is again noted to the level of the junction of the descending colon/sigmoid colon, unchanged from prior study, and a partial large bowel obstruction cannot be excluded. Patient did have an NGT earlier this admission that fell out today. Patient reports improvement in her symptoms overall in regards to her abdominal pain/n/v, but still has yet to pass flatus or have a BM. On examination her abdomen is soft, non distended, with some discomfort elicited in the epigastric region and RLQ. Gastroenterology has been consulted and they are considering a colonoscopy for further evaluation. We have no plans for surgical intervention at this time, agree with GI consult, continued supportive care with bowel rest and IVF. Also,of note patient was found to have a significant hyponatremia and nephrology is consulted and her numbers are slowly improving (Na: 123 today) and we recommend ongoing monitoring of electrolytes with repletion. Supervising Physician Co-Signing Physician Notes At this time no surgical issues remaining from the medical service and gastroenterology will be available if further issues develop History of Present Illness Attending Physician: Yulissa Estrada MD History of Present Illness This is a 60y F with no significant PMH who presented to the [facility] ED on 03/20/21 with complaints of abdominal pain and constipation. Patient reports her constipation and belly pain has been present and worsening over the last 3 weeks. She was seen in our ED on 03/[address] a/p that showed no acute process and was thought she had muscle spasms and sent home on flexeril. Patient followed up with her PCP for symptoms and they prescribed her laxatives constipation without improvement. She tried multiple enema's with only very small BM's. She re-presented to the ER on 03/20 and underwent a repeat CT a/p that showed a "moderately distended fluid-filled colon which suggests a diarrheal state. Apparent transition point at the junction of the descending colon and sigmoid colon. No lesion identified by CT. A colonic obstruction is considered less likely but cannot be excluded." The patient reports a history of decreased appetite over the last 3 weeks. Abdominal pain mostly located in the upper abdomen. She endorses + nausea and bouts of emesis (last vomited 2x last week at the dinner table). She denies passing flatus. No f/c, cp/sob. No prior abdominal surgical history. Last colonoscopy was in [address] Salas of which she states a polyp was removed at that time. Patient did have an NGT placed this admission that subsequently fell out today. She does report improvement in her abdominal pain and currently denies any nausea/vomiting. Allergies Allergy/AdvReac Type Severity Reaction Status Date / Time Penicillins Allergy Severe RASH HIVES Verified 03/20/21 00:08 Sulfa (Sulfonamide Allergy Severe RASH HIVES Verified 03/20/21 00:08 Antibiotics) sulfamethoxazole Allergy Severe RASH HIVES Verified 03/20/21 00:08 trimethoprim Allergy Severe RASH HIVES Verified 03/20/21 00:08 KEFLEX Allergy Severe CHEST Uncoded 03/20/21 00:08 TIGHTNESS SWELLING OF THROAT Home Medications Medication Instructions Recorded Confirmed Type 4 Restore 1 tab PO DAILY 03/09/21 03/20/21 History Balance D Vit 5 - 7 tabs PO DAILY 03/09/21 03/20/21 History Eternity Liq 2.5 ml PO DAILY 03/09/21 03/20/21 History Influence Vit 1 tab PO DAILY 03/09/21 03/20/21 History Innerchi Vit 1 tab PO DAILY 03/09/21 03/20/21 History Renorvator 2 1 tab PO DAILY 03/09/21 03/20/21 History Vital Vision Tab 1 tab PO DAILY 03/09/21 03/20/21 History calcium carbonate 500 mg calcium 500 mg PO DAILY 03/09/21 03/20/21 History (1,250 mg) tablet (Calcium 500) cyclobenzaprine 10 mg tablet 10 mg PO TID PRN #14 tab 03/09/21 03/20/21 Rx ibuprofen 200 mg tablet 600 mg PO Q6H PRN 03/09/21 03/20/21 History multivitamin 1 tab PO DAILY 03/09/21 03/20/21 History Patient History Medical History Kidney stone Social History Smoking Status: Never smoker Hx Alcohol Use: No Hx Substance Use: No Preferred Language: Japanese Communication Ability: Effective Corporate Attorney Required: No Beliefs That Will Affect Care: None Current Living Situation: Spouse Other Information That Helps Us Care for You: No Feels Safe at Home: Yes Safety Concerns: Feels Safe At This Time Review of Systems Constitutional: + anorexia; no fever and no chills Respiratory: no dyspnea Cardiovascular: no chest pain Gastrointestinal: + abdominal pain, + nausea, + vomiting and + constipation Physical Exam Physical Exam: awake/alert Constitutional: well developed and well nourished; no acute distress Respiratory: normal respiratory effort Gastrointestinal (Abdomen): Inspection/Auscultation: abdomen not distended Percussion/Palpation: + abdomen tender (some discomfort to palpation in the epigastric region, RLQ, and mid L abd) and abdomen soft; no guarding Results & Data ([facility]) Vital Signs (Past 12 Hours) Vital Signs Temp Pulse Pulse Resp BP Pulse Ox 03/21/21 07:19 94 H 03/21/21 03:20 36.8 C 104 H 20 138/[address] OF THE ABDOMEN AND PELVIS WITH CONTRAST CLINICAL HISTORY: Right lower quadrant abdominal pain. COMPARISON STUDY: CT of the abdomen pelvis March 09, 2021. TECHNIQUE: Following IV administration of 94 mL of Optiray, axial images of the abdomen and pelvis were obtained from the lung bases to the proximal femurs. Images were reviewed in the axial, sagittal, and coronal planes. IV contrast was administered without complication. Automated exposure control was utilized for the study. A dose lowering technique was utilized adhering to the principles of ALARA CT DOSE: 313.80 mGy.cm FINDINGS: Lung bases are unremarkable. There is a small hiatal hernia. Several subcentimeter hypodense hepatic lesions favor cysts. The spleen, adrenal glands and pancreas are unremarkable. There is no biliary or pancreatic ductal dilatation. Several subcentimeter renal lesions are too small to characterize but favor cysts. Previously described renal calculi are obscured by excreted contrast. There is no hydronephrosis. No pneumatosis, free air or portal venous gas is present. The appendix is normal. The colon is now moderately distended and fluid-filled with transition point at the junction of the descending colon and the sigmoid colon. No lesion at this site is identified by CT. This dilatation is new since CT of March 09, 2021. There is mild wall thickening of the cervical rectum. Major vasculature is patent. No lymphadenopathy. No acute fracture or suspicious lesion is identified within the visualized skeletal structures. IMPRESSION: 1. Moderately distended fluid-filled colon which suggests a diarrheal state. Apparent transition point at the junction of the descending colon and sigmoid colon. No lesion identified by CT. A colonic obstruction is considered less likely but cannot be excluded and radiographic follow-up is recommended to ensure resolution. This finding will be contrast faxed to the ordering provider at time of dictation. 2. Mild wall thickening of the sigmoid colon and rectum which may reflect a colitis. ACT 112: Negative or not required by law. Electronically signed by: Ramon Swanson M.D. 03/20/2021 7:13 AM KUB HISTORY: Constipation. Generalized abdominal pain COMPARISON: Abdomen and pelvis CT 03/20/2021. FINDINGS: Mildly dilated gas and fluid-filled colon is again noted to the level of the junction of the descending colon/sigmoid colon. This is similar to the prior study. Therefore, a partial large bowel obstruction cannot be excluded. No renal calculi. No ureteral calculi. No pneumoperitoneum or pneumatosis. IMPRESSION: Mildly dilated gas and fluid-filled colon is again noted to the level of the junction of the descending colon/sigmoid colon. This is similar to the prior study. Therefore, a partial large bowel obstruction cannot be excluded. Consider follow-up colonoscopy for further evaluation. ACT 112: Negative or not required by law. Electronically signed by: Maurice Asif M.D. 03/21/2021 9:21 AM PG Care Time/CCT Total # of Minutes Spent Total Time Spent with Patient: Total time spent is greater than 50% in coordination of care (as documented) at patient's floor/unit and/or counseling patient: Coding Level of Care Code 04636 Inpt Consult Level 3 Diagnoses Constipation K59.00
--- NOTE | 2021-03-21 17:10 | Hospitalist Progress Note ---
Date of Service March 21, 2021 Assessment & Plan (1) Hyponatremia: Plan: Dehydration with GI loss nausea vomiting with underlying SIADH. Appreciate input from nephrology, slow correction of sodium Admission sodium was 117, Sodium level gradually improved to 128, continue to monitor BMP closely (2) Abdominal pain: Plan: Admitted with severe abdominal pain, CT abdomen pelvis showed dilated colon, History of severe constipation, Appreciate input from GI, ordered for strict n.p.o., NG is tube suction was ordered and patient had intractable nausea vomiting Overnight had more than 600 mL of NG tube drainage, This morning NG tube fell off, patient refused to have the NG tube reinserted X-ray of KUB shows persistent dilatation of bowel with possible partial small bowel obstruction No nausea vomiting , did not need reinsertion of NG tube Abdominal pain has improved, continue to have strict n.p.o. status Appreciate input from GI sigmoidoscopy procedure was kept on hold secondary to hyponatremia Surgery input appreciated, recommends continue conservative treatment, with supportive care (3) Small bowel obstruction: Plan: Partial small bowel obstruction possible secondary to ileus versus severe constipation, Continue supportive care Plan: Plan of care updated to patient and patient's present at bedside code Status: Full code DVT prophylaxis: SCD and teds patient is encouraged to ambulate Disposition: Expected to be discharged home when medically stable Admission and Anticipated Discharge Date Admission Date: March 20, 2021 Subjective Follow-up visit for abdominal pain, hyponatremia: Patient is walking on the hallway with by her side, NG tube discontinued/fail of this morning, patient did not had any episode of nausea or vomiting, States abdominal pain has markedly improved, not able to pass any gas yet No complaint of dizzy spell or lightheadedness, No fever chills no cough no shortness of breath Review of Systems Review of Systems: All systems reviewed & are unremarkable except as noted in Subjective Physical Exam Constitutional: WD/WN, vitals as above Eyes: PERRL, conjunctivae normal, anicteric sclerae ENMT: external ear and nose normal, oropharynx normal Neck: trachea midline, no thyromegaly Respiratory: normal respiratory effort, lungs clear to auscultation Cardiovascular: RRR, no murmur, no edema Gastrointestinal (Abdomen): Soft, moderately distended, tenderness lower abdomen, no guarding or rigidity Musculoskeletal: no cyanosis or clubbing, extremities motor strength 5/5 Skin: no rashes, warm and dry Neurologic: PERRL, EOMI, accommodation nl, no face palsy, no dysarthria Psychiatric: A+Ox3, euthymic affect Results & Data Results & Data ([facility]) Vital Signs (Past 12 Hours) Vital Signs Temp Pulse Pulse Resp BP Pulse Ox 03/21/21 15:11 36.8 C 113 H 103 H 18 142/87 H 95 03/21/21 07:19 94 H
[2021-03-21 19:57] LABS: BUN Creatinine Ratio 14.9 (10-20); Calcium 9.7 mg/dl (8.5-10.1); Creatinine Clr Calc Pharmacy 73.9 ml/min; Est GFR (African American) 112.4 ml/min; Potassium 3.9 mmol/L (3.5-5.1)
[2021-03-22] MEDS: LACTATED RINGER'S 1,000 ML IV SCH ×2 (03:43→23:46)
[2021-03-22] MEDS: MoRPHine SULFATE 2 MG/ML CARP IV PRN ×2 (04:59→23:49)
[2021-03-22] MEDS: ENOXAPARIN INJ 40 MG/0.4 ML SYR SQ SCH (07:41)
[2021-03-22] MEDS: ACETAMINOPHEN 325 MG TAB PO PRN ×2 (07:44→20:51)
--- NOTE | 2021-03-22 08:39 | Gastroenterology Progress Note ---
Date of Service March 22, 2021 Assessment & Plan (1) Constipation: Plan: 60 y/o female admitted with acute hyponatremia, abd discomfort, constipation. NGT initially placed but was dislodged, pt feels improved overall; still no BM, flatus. Abd soft. Hyponatremia improving (SIADH, poor PO intake?). Repeat KUB yest suggestive of mildly dilated gas/fluid filled colon to jxn of descending colon/sigmoid. On exam abd soft. Labs reviewed - hyponatremia slowly improv ing. - Start full liquid diet - Miralax BID - Monitor GI output - Continue to correct sodium - Keep potassium and magnesium level WNL - Encouraged ambulation as able - Pt would benefit from repeat full colonoscopy; last one was 2018 - had inflammatory polyp; this can be done on an outpt basis (2) Acute hyponatremia: Admission and Anticipated Discharge Date Admission Date: March 20, 2021 Supervising Physician Co-Signing Physician Notes I have personally seen and examined the patient with Pamela Evans PA-C. Her note reflects my exam and findings. I agree with her impression and plan. Given multiple and recent colonoscopies, advanced sinister pathology of the colon is low on the differential. Advance diet as tolerates and add Miralax. Michael Hernandez M.D. Subjective Pt seen and examine, chart reviewed. Overnight had no issues; feeling somewhat better this AM. Labs reviewed - hyponatremia slowly improving. She's not passing flatus; no BMs. She has been up walking the halls. She is hungry and wants to eat - no PO since Sunday. Had some mild intermittent abd discomfort. No nausea, vomiting, fever, melena, hematochezia, hematemesis Review of Systems Review of Systems: As per HPI Physical Exam Constitutional: WD/WN, vitals as above Sitting upright in bedside chair Respiratory: normal respiratory effort Gastrointestinal (Abdomen): Soft, nondistended, no focal tenderness Skin: no rashes, warm and dry Results & Data ([facility]) Vital Signs (Past 12 Hours) Vital Signs Temp Pulse Pulse Resp BP Pulse Ox 03/22/21 07:53 36.6 C 109 H 16 146/88 H 95 03/22/21 04:43 36.9 C 100 H 18 155/99 H 95 03/21/21 22:57 36.7 C 95 H 18 154/94 H 94 03/21/21 22:20 101 H 03/21/21 21:37 122 H Laboratory Results 03/21/21 03/21/21 Range/Units 19:00 10:27 Sodium 124 L 123 L (136-145) mmol/L Potassium 3.9 4.0 (3.5-5.1) mmol/L Chloride 87 L 86 L (98-107) mmol/L Carbon Dioxide 29 29 (21-32) mmol/L Anion Gap 8.0 8.0 (3-11) BUN 9 8 (7-18) mg/dl Creatinine 0.64 0.58 L (0.6-1.2) mg/dl Est Cr Clr Drug Dosing 73.9 81.6 ml/min Est GFR ( Amer) 112.4 116.1 ml/min Est GFR (Non-Af Amer) 97.0 100.2 ml/min BUN/Creatinine Ratio 14.9 14.6 (10-20) Glucose 92 98 (70-99) mg/dl Calcium 9.7 9.5 (8.5-10.1) mg/dl Diagnostic Findings KUB 03/21/21: Mildly dilated gas and fluid-filled colon is again noted to the level of the junction of the descending colon/sigmoid colon. This is similar to the prior study. Therefore, a partial large bowel obstruction cannot be excluded. Consider follow-up colonoscopy for further evaluation.
[2021-03-22] MEDS ORDERED: ACETAMINOPHEN 1,000 MG/100 ML VIAL IV PRN (09:11)
[2021-03-22] MEDS ORDERED: POLYETHYLENE (MIRALAX) 17 GM PACK PO ONE (09:42)
[2021-03-22] MEDS ORDERED: POLYETHYLENE (MIRALAX) 17 GM PACK ONE (09:46)
--- NOTE | 2021-03-22 11:23 | Nephrology Progress Note ---
Date of Service March 22, 2021 Assessment & Plan Admission and Anticipated Discharge Date Admission Date: March 20, 2021 Subjective No new issues. Less nausea and burping. Still No BM General exam: Appears comfortable, no acute distress. Has NG tube HEENT: Pupils are equal and reactive to light Neck: No JVD, neck is supple trachea is midline Respiratory system: Clear breath sounds bilaterally. Gastrointestinal: Generalized abdominal tenderness, bowel sounds are present CVS: Regular rate and rhythm. No murmurs, rubs or gallops Musculoskeletal: No joint or muscle tenderness Extremities: Non tender, no edema, peripheral pulses are present Neuro: Oriented, no tremors, no focal neurological deficits Skin: No rashes labs na 124 last night. no labs this am A/p Hyponatremia: sec to SIADH with volume Depletion combination. Rec na rising nicely to 124 last night. No labs this AM. Will order STAT and further plans after that. till then Continue RL at 50 per hr. Labs can be q12hr now. Results & Data ([facility]) Vital Signs (Past 12 Hours) Vital Signs Temp Pulse Resp BP Pulse Ox 03/22/21 11:03 36.9 C 125 H 16 145/91 H 93 03/22/21 07:53 36.6 C 109 H 16 146/88 H 95 03/22/21 04:43 36.9 C 100 H 18 155/99 H 95
[2021-03-22 12:57] LABS: BUN Creatinine Ratio 17.1 (10-20); Calcium 10.1 mg/dl (8.5-10.1); Creatinine Clr Calc Pharmacy 77.6 ml/min; Est GFR (African American) 114.2 ml/min; Est GFR (Non-African American) 98.5 ml/min; Potassium 4.1 mmol/L (3.5-5.1)
--- NOTE | 2021-03-22 14:17 | XRay Report ---
KUB HISTORY: abdominal distension COMPARISON: KUB 03/21/2021. FINDINGS: Mildly dilated gas-filled colon is again noted. This now extends into the left lower quadra nt likely at the level of the sigmoid colon. No renal calculi. No ureteral calculi. No pneumoperiton eum or pneumatosis. IMPRESSION: Mild dilated gas-filled colon is again noted which now extends into the left lower quadrant at the le nazanin of the sigmoid colon. Again, this could represent an ileus or partial large bowel obstruction. ACT 112: Negative or not required by law. Electronically signed by: Maurice Asif M.D. 03/22/2021 2:15 PM
[2021-03-22] MEDS: DOXYCYCLINE HYCLATE 100 MG in DEXTROSE 5% 100 ML IV SCH (16:37)
--- NOTE | 2021-03-22 18:16 | Hospitalist Progress Note ---
Date of Service March 22, 2021 Assessment & Plan (1) Hyponatremia: Plan: Dehydration with GI loss nausea vomiting with underlying SIADH. Appreciate input from nephrology, slow correction of sodium Admission sodium was 117, Sodium level gradually improved to 128-> 129 on LR @ 50ml /hr by Nephrology cont to monitor BMP (2) Abdominal pain: Plan: Admitted with severe abdominal pain, CT abdomen pelvis showed dilated colon, History of severe constipation, was on NG tube suction on admission , got dislodged , no nausea or vomiting , NG tube was not [id number] X-ray of KUB shows persistent dilatation of bowel with possible partial small bowel obstruction Abdominal pain has improved, Appreciate input from GI Surgery input appreciated, recommends continue conservative treatment, with ruvalcaba pportive care Sinus tachycardia : HR in in 130's max HR in 150's while walking no complain of palpitation , no dizzy spell or lightheadedness possible dehydration?vs acute abdominal pathology iv fluid not ordered -risk of worsening of hyponatremia ( SIADH ) ordered for lacitc acid , KUB of abdomen cont NPO status (3) Small bowel obstruction: Plan: Partial small bowel obstruction possible secondary to ileus versus severe constipation, Continue supportive care Plan: code Status: Full code DVT prophylaxis: SCD and teds patient is encouraged to ambulate Disposition: Expected to be discharged home when medically stable Admission and Anticipated Discharge Date Admission Date: March 20, 2021 Subjective walking on the hallway sinus tachycardia HR in 130's noted pt denies of any palpitation , no sob , no discomfort abdominal pain minimum no nausea or vomiting not able to pass any gas , no bowel movement yet no fever or chills Review of Systems Review of Systems: All systems reviewed & are unremarkable except as noted in Subjective Physical Exam Constitutional: WD/WN, vitals as above Eyes: PERRL, conjunctivae normal, anicteric sclerae ENMT: external ear and nose normal, oropharynx normal Neck: trachea midline, no thyromegaly Respiratory: normal respiratory effort, lungs clear to auscultation Cardiovascular: RRR, no murmur, no edema Gastrointestinal (Abdomen): Inspection/Auscultation: abdomen normal to inspection very diminished bowel sound Musculoskeletal: no cyanosis or clubbing, extremities motor strength 5/5 Skin: no rashes, warm and dry Neurologic: PERRL, EOMI, accommodation nl, no face palsy, no dysarthria Psychiatric: A+Ox3, euthymic affect Results & Data Results & Data ([facility]) Vital Signs (Past 12 Hours) Vital Signs Temp Pulse Resp BP Pulse Ox 03/22/21 11:03 36.9 C 125 H 16 145/91 H 93 03/22/21 07:53 36.6 C 109 H 16 146/88 H 95
[2021-03-22] MEDS: POLYETHYLENE (MIRALAX) 17 GM PACK PO SCH (20:51)
[2021-03-23] MEDS: DOXYCYCLINE HYCLATE 100 MG in DEXTROSE 5% 100 ML IV SCH ×2 (03:43→15:03)
[2021-03-23] MEDS: MoRPHine SULFATE 2 MG/ML CARP IV PRN (05:46)
--- NOTE | 2021-03-23 08:30 | Electrocardiogram Report ---
Test Reason : Blood Pressure : / mmHG Vent. Rate : 090 BPM Atrial Rate : 090 BPM P-R Int : 166 ms QRS Dur : 082 ms QT Int : 366 ms P-R-T Axes : 053 021 036 degrees QTc Int : 447 ms Normal sinus rhythm Low voltage QRS Borderline ECG No previous ECG available for comparison Confirmed by Dawit Moscoso ([id number]) on 03/23/2021 8:30:30 AM Referred By: REFERRED SELF Confirmed By:Dawit Moscoso
[2021-03-23 09:02] LABS: BUN Creatinine Ratio 10.9 (10-20); Calcium 9.9 mg/dl (8.5-10.1); Est GFR (African American) 116.8 ml/min; Est GFR (Non-African American) 100.8 ml/min; Potassium 3.9 mmol/L (3.5-5.1)
--- NOTE | 2021-03-23 09:15 | Nephrology Progress Note ---
Date of Service March 23, 2021 Assessment & Plan Admission and Anticipated Discharge Date Admission Date: March 20, 2021 Subjective No new issues. General exam: Appears comfortable, no acute distress. HEENT: Pupils are equal and reactive to light Neck: No JVD, neck is supple trachea is midline Respiratory system: Clear breath sounds bilaterally. Gastrointestinal: Generalized abdominal tenderness, bowel sounds are present CVS: Regular rate and rhythm. No murmurs, rubs or gallops Musculoskeletal: No joint or muscle tenderness Extremities: Non tender, no edema, peripheral pulses are present Neuro: Oriented, no tremors, no focal neurological deficits Skin: No rashes labs na 124 last night. no labs this am A/p Hyponatremia: sec to SIADH with volume Depletion combination. Rec na rising nicely to 128 now. Continue RL at 50 per hr. Another urine osm to reasess situation. Labs can be q24hr now. Results & Data ([facility]) Vital Signs (Past 12 Hours) Vital Signs Temp Pulse Pulse Resp BP Pulse Ox 03/23/21 07:52 36.6 C 84 18 146/94 H 96 03/23/21 07:00 81 03/23/21 02:36 36.5 C 100 H 18 137/91 98 03/22/21 23:22 86 03/22/21 22:42 37.3 C 109 H 18 149/96 H 94
--- NOTE | 2021-03-23 09:30 | Gastroenterology Progress Note ---
Date of Service March 23, 2021 Assessment & Plan (1) Constipation: Plan: 60 y/o female admitted with acute hyponatremia, abd discomfort, constipation. NGT initially placed but was dislodged. Pt tolerated diet and had several BMs yesterday. Overnight had increasing abd pain, today is improved. Labs reviewed - hyponatremia slowly improving. She's on doxy for ? tick borne illness. Repeat KUB yest suggestive of mildly dilated gas/fluid filled colon to the sigmoid, ? ileus/partial LBO, however clinically does not seem obstructed with soft abd and passing of BMs. - Advance diet. - Will discuss with attending what role, if any, endoscopy would have at this point - Would try to limit narcotics as able - Monitor GI output - Continue to correct sodium - Keep potassium and magnesium level WNL - Encouraged ambulation as able - Pt would benefit from repeat full colonoscopy; last one was 2018 - had inflammatory polyp; this can be done on an outpt basis (2) Acute hyponatremia: Admission and Anticipated Discharge Date Admission Date: March 20, 2021 Supervising Physician Co-Signing Physician Notes I have personally seen and examined the patient with Marleen Evans PA-C. Her note reflects my exam and findings. I agree with her impression and plan. Moving bowels. Feeling better. Walking around the floors. Out patient colonoscopy. Michael Hernandez M.D. Subjective Patient seen and examined, chart reviewed. Yesterday was tolerating diet; was ambulating in the sanchez. Had several moderate BMs. Not passing flatus. Overnight had some more abd pain, given analgesia, was made NPO. Had some sinus tach last night. This AM feels improved, denies any real abd pain. When she moves around has some abd discomfort. Pt has an erythematous rash on her leg, abd; started on doxy - tick borne illness? Pt states she had a tick bite in January. No nausea, vomiting, fever, chills, sweats, CP, SOB, melena, hematochezia, arthralgias, headache. Review of Systems Review of Systems: As per HPI Physical Exam Constitutional: WD/WN, vitals as above Respiratory: normal respiratory effort Cardiovascular: Rate/Rhythm: regular rate and regular rhythm Gastrointestinal (Abdomen): BS x 4 quadrants, soft, mild generalized tenderness, no rebound, guarding, distention Skin: + macular erythematous rash on the upper abd with central clearing, 2 smaller macular areas of erythema on the left leg Psychiatric: A+Ox3, euthymic affect Results & Data ([facility]) Vital Signs (Past 12 Hours) Vital Signs Temp Pulse Pulse Resp BP Pulse Ox 03/23/21 07:52 36.6 C 84 18 146/94 H 96 03/23/21 07:00 81 03/23/21 02:36 36.5 C 100 H 18 137/91 98 03/22/21 23:22 86 03/22/21 22:42 37.3 C 109 H 18 149/96 H 94 Laboratory Results 03/23/21 03/22/21 03/22/21 Range/Units 07:52 15:22 15:22 Sodium 128 L (136-145) mmol/L Potassium 3.9 (3.5-5.1) mmol/L Chloride 93 L (98-107) mmol/L Carbon Dioxide 30 (21-32) mmol/L Anion Gap 5.0 (3-11) BUN 6 L (7-18) mg/dl Creatinine 0.57 L (0.6-1.2) mg/dl Est Cr Clr Drug Dosing 83.0 ml/min Est GFR ( Amer) 116.8 ml/min Est GFR (Non-Af Amer) 100.8 ml/min BUN/Creatinine Ratio 10.9 (10-20) Glucose 103 H (70-99) mg/dl Lactate 1.5 (0.4-2.0) mmol/L Calcium 9.9 (8.5-10.1) mg/dl Procalcitonin Cancelled Lyme Disease IgG Ab Cancelled Lyme Disease IgM Ab Cancelled 03/22/21 Range/Units 11:41 Sodium 127 L (136-145) mmol/L Potassium 4.1 (3.5-5.1) mmol/L Chloride 92 L (98-107) mmol/L Carbon Dioxide 27 (21-32) mmol/L Anion Gap 9.0 (3-11) BUN 10 (7-18) mg/dl Creatinine 0.61 (0.6-1.2) mg/dl Est Cr Clr Drug Dosing 77.6 ml/min Est GFR ( Amer) 114.2 ml/min Est GFR (Non-Af Amer) 98.5 ml/min BUN/Creatinine Ratio 17.1 (10-20) Glucose 168 H (70-99) mg/dl Lactate (0.4-2.0) mmol/L Calcium 10.1 (8.5-10.1) mg/dl Procalcitonin Lyme Disease IgG Ab Lyme Disease IgM Ab Diagnostic Findings KUB 03/22/21: IMPRESSION: Mild dilated gas-filled colon is again noted which now extends into the left lower quadrant at the level of the sigmoid colon. Again, this could represent an ileus or partial large bowel obstruction.
[2021-03-23] MEDS: ENOXAPARIN INJ 40 MG/0.4 ML SYR SQ SCH (10:37)
[2021-03-23] MEDS: POLYETHYLENE (MIRALAX) 17 GM PACK PO SCH ×3 (10:41→20:09)
[2021-03-23] MEDS ORDERED: NON-FORMULARY PATIENT'S OWN MED SCH (17:00)
[2021-03-23] MEDS ORDERED: NON-FORMULARY PATIENT'S OWN MED PRN (17:45)
[2021-03-23 18:05] LABS: Lyme Ab IgG w/WB Rflx Negative (Negative); Lyme Ab IgM w/WB Rflx Negative (Negative)
--- NOTE | 2021-03-23 19:06 | Hospitalist Progress Note ---
Date of Service March 23, 2021 Assessment & Plan (1) Small bowel obstruction: (2) Acute hyponatremia: Plan: #. Hyponatremia Admission sodium was 117 2/2 Dehydration with GI loss/nausea/vomiting with underlying SIADH. Nephrology on board: appropriate rise in Na level; c/w RL at 50 ml/hr. Fluid and electrolytes Mx per Nephro. Labs Q24Hr. a rising nicely to 128 now. Repet Urine Osm 377 today. Appreciate input from nephrology #. Abdominal pain/Small bowel obstruction: Admitted with severe abdominal pain, CT abdomen pelvis showed dilated colon F/u XR KUB showed persistent dilatation of bowel with possible partial small bowel obstruction History of severe constipation, was on NG tube suction on admission , got dislodged, since there was no nausea/vomiting at the time hence not reinserted. Had multiple BM yesterday and today RESOLVED belly pain 2/2 constipation owing to ileus GI on board. Surgery also evaluated the patient. #. Sinus tachycardia 2/2 to dehydration and stress from partial bowel obstruction. improving, currently high normal Code Status: Full code DVT prophylaxis: SCD and teds patient is encouraged to ambulate Disposition: Expected to be discharged home when medically stable. She live with her . Admission and Anticipated Discharge Date Admission Date: March 20, 2021 Subjective Patient was sitting up in bed, NAD, on RA. Patient denies Headache, Dizziness, Fever, Chills, Sore throat, Cough, Chest pain, palpitations, SOB, Belly pain, pain/burning while passing urine. Last Bowel movement [today]. Needed morphine for belly pain overnight. Feels better than yesterday. Physical Exam Physical Exam: GENERAL: Alert and oriented x3. NAD, on RA. HEENT: No pallor, no icterus. Pupils equal, round and reactive to light. Oral mucosa moist. NECK: No JVD, no neck masses. HEART: S1 and S2 heard. Regular rate and rhythm. No murmur, no gallop. RESPIRATORY SYSTEM: Normal AP diameter. No accessory muscle use. No wheezing, no crackles. ABDOMEN: Soft, bowel sounds present, nontender, no distention. CENTRAL NERVOUS SYSTEM: Alert and oriented x3. No facial droop. Speech is clear. Obeys simple commands. Moves extremities. EXTREMITIES: No edema, no erythema seen. Results & Data Results & Data ([facility]) Vital Signs (Past 12 Hours) Vital Signs Temp Pulse Pulse Resp BP BP Pulse Ox 03/23/21 15:31 36.5 C 101 H 18 138/88 97 03/23/21 15:28 89 03/23/21 11:55 36.4 C L 89 18 145/81 H 94 03/23/21 07:52 36.6 C 84 18 146/94 H 96
[2021-03-23] MEDS: LACTATED RINGER'S 1,000 ML IV SCH (19:59)
[2021-03-23] MEDS: ACETAMINOPHEN 325 MG TAB PO PRN (23:43)
[2021-03-24] MEDS: MoRPHine SULFATE 2 MG/ML CARP IV PRN (01:42)
[2021-03-24] MEDS: DOXYCYCLINE HYCLATE 100 MG in DEXTROSE 5% 100 ML IV SCH ×2 (02:33→15:27)
[2021-03-24 08:50] LABS: BUN Creatinine Ratio 11.2 (10-20); Calcium 9.2 mg/dl (8.5-10.1); Creatinine Clr Calc Pharmacy 112.7 ml/min; Est GFR (African American) 129.1 ml/min; Est GFR (Non-African American) 111.4 ml/min; Potassium 3.7 mmol/L (3.5-5.1)
--- NOTE | 2021-03-24 10:08 | Nephrology Progress Note ---
Date of Service March 24, 2021 Assessment & Plan Admission and Anticipated Discharge Date Admission Date: March 20, 2021 Subjective No new issues. Slowly advancing diet. General exam: Appears comfortable, no acute distress. HEENT: Pupils are equal and reactive to light Neck: No JVD, neck is supple trachea is midline Respiratory system: Clear breath sounds bilaterally. Gastrointestinal: Generalized abdominal tenderness, bowel sounds are present CVS: Regular rate and rhythm. No murmurs, rubs or gallops Musculoskeletal: No joint or muscle tenderness Extremities: Non tender, no edema, peripheral pulses are present Neuro: Oriented, no tremors, no focal neurological deficits Skin: No rashes labs na 126 this am A/p Hyponatremia: sec to SIADH with volume Depletion combination. Rec na rising in the begining but now has stalled at high 120's. expected as this is combination of SIADH with volume Depletion Continue NSS at 80 per hr. But this alone will not raise it further. Now we have to treat for SIADH also. Add torsemide 20 bid with k.cl 10 bid Inappropriate high urine osm on repeat Urine urea 15 gm bid. Given high BP no salt tab. Check labs again q12. Also FFR 1200 ml Results & Data ([facility]) Vital Signs (Past 12 Hours) Vital Signs Temp Pulse Pulse Resp BP Pulse Ox 03/24/21 07:34 94 H 03/24/21 07:30 36.4 C L 77 18 160/97 H 98 03/24/21 00:58 105 H 03/23/21 22:35 36.6 C 92 H 18 155/95 H 97
--- NOTE | 2021-03-24 10:15 | Gastroenterology Progress Note ---
Date of Service March 24, 2021 Assessment & Plan (1) Constipation: Plan: 60 y/o female admitted with acute hyponatremia, abd discomfort, constipation; pt was tolerating diet and passing BMs, however none since yesterday, no flatus, and abd is more tender, more distended today. Labs reviewed - hyponatremia slowly improving. She's on doxy for ? tick borne illness. Abd soft, mildly distended with moderate tenderness. - Keep NPO - Repeat KUB today - IVF - Would try to limit narcotics as able - Monitor GI output - Continue to correct sodium - Keep potassium and magnesium level WNL - Encouraged ambulation as able - Pt would benefit from repeat full colonoscopy; last one was 2018 - had inflammatory polyp; this can be done on an outpt basis (2) Acute hyponatremia: Admission and Anticipated Discharge Date Admission Date: March 20, 2021 Supervising Physician Co-Signing Physician Notes I have personally seen and examined the patient with Marleen Evans PA-C. Her note reflects my exam and findings. I agree with her impression and plan. Developed more abdominal distention and discomfort. KUB with some mild d ilatation of colon. Will arrange colo/flexi tomorrow without PO prep because of symptoms. Michael Hernandez M.D. Subjective Patient seen and examined, chart reviewed. Overnight had worsening generalized "burning" abd pain, distention, no BMs or flatus. Last BM was yest morning. She tolerated diet yesterday and some oatmeal and yogurt this AM. No nausea, vomiting, hematemesis, melena, hematochezia, fever, chills, CP, SOB. Review of Systems Review of Systems: All systems reviewed & are unremarkable except as noted in HPI & below Physical Exam Constitutional: WD/WN, vitals as above Respiratory: normal respiratory effort Cardiovascular: Rate/Rhythm: regular rate and regular rhythm Gastrointestinal (Abdomen): Normoactive bowel sounds x 4 quadrants, soft, mildly distended, moderate generalized tenderness, no rebound, guarding Skin: no rashes, warm and dry Psychiatric: A+Ox3, euthymic affect Results & Data ([facility]) Vital Signs (Past 12 Hours) Vital Signs Temp Pulse Pulse Resp BP Pulse Ox 03/24/21 07:34 94 H 03/24/21 07:30 36.4 C L 77 18 160/97 H 98 03/24/21 00:58 105 H 03/23/21 22:35 36.6 C 92 H 18 155/95 H 97 Laboratory Results 03/24/21 03/24/21 03/23/21 Range/Units 07:44 07:31 16:29 Sodium 126 L (136-145) mmol/L Potassium 3.7 (3.5-5.1) mmol/L Chloride 93 L (98-107) mmol/L Carbon Dioxide 25 (21-32) mmol/L Anion Gap 8.0 (3-11) BUN 5 L (7-18) mg/dl Creatinine 0.42 L (0.6-1.2) mg/dl Est Cr Clr Drug Dosing 112.7 ml/min Est GFR ( Amer) 129.1 ml/min Est GFR (Non-Af Amer) 111.4 ml/min BUN/Creatinine Ratio 11.2 (10-20) Glucose 105 H (70-99) mg/dl Calcium 9.2 (8.5-10.1) mg/dl Urine Osmolality (500-800) mOsm/kg Anaplasma Smear A. phagocytophilum DNA Pending Lyme Disease IgG Ab Negative (Negative) Lyme Disease IgM Ab Negative (Negative) 03/23/21 03/23/21 Range/Units 11:00 07:53 Sodium (136-145) mmol/L Potassium (3.5-5.1) mmol/L Chloride (98-107) mmol/L Carbon Dioxide (21-32) mmol/L Anion Gap (3-11) BUN (7-18) mg/dl Creatinine (0.6-1.2) mg/dl Est Cr Clr Drug Dosing ml/min Est GFR ( Amer) ml/min Est GFR (Non-Af Amer) ml/min BUN/Creatinine Ratio (10-20) Glucose (70-99) mg/dl Calcium (8.5-10.1) mg/dl Urine Osmolality 377 L (500-800) mOsm/kg Anaplasma Smear See Comment A. phagocytophilum DNA Lyme Disease IgG Ab (Negative) Lyme Disease IgM Ab (Negative)
--- NOTE | 2021-03-24 10:42 | XRay Report ---
XR KUB/Abdomen 1 view CLINICAL HISTORY: abd distention COMPARISON STUDY: March 22, 2021 FINDINGS: Mild interval worsening of gaseous dilatation of the large bowel most prominent at the upper abdomina l region. Nondilated gas-filled loops of small bowel are seen within pelvic region. No definite free intra-abdominal gas is seen. IMPRESSION: 1. Interval worsening of gaseous distention of the large bowel loops since March 22, 2021 which might represent large bowel obstruction. Follow-up CT of the abdomen might be considered. Findings will be sent to the patient's unit. ACT 112: Negative or not required by law. The above report was generated using voice recognition software. It may contain grammatical, syntax o r spelling errors. Electronically signed by: Felisha Middleton DO 03/24/2021 10:40 AM
[2021-03-24] MEDS: POLYETHYLENE (MIRALAX) 17 GM PACK PO SCH ×2 (11:04→20:25)
[2021-03-24] MEDS: ENOXAPARIN INJ 40 MG/0.4 ML SYR SQ SCH (11:04)
[2021-03-24] MEDS: SODIUM CHLORIDE 0.9% 1000ML 1,000 ML IV SCH (11:05)
[2021-03-24 11:36] LABS: BUN Creatinine Ratio 7.8 (10-20); Calcium 9.6 mg/dl (8.5-10.1); Creatinine Clr Calc Pharmacy 84.5 ml/min; Est GFR (African American) 117.5 ml/min; Est GFR (Non-African American) 101.3 ml/min; Potassium 3.5 mmol/L (3.5-5.1)
[2021-03-24] MEDS: UREA (UREA-NA) 15 GM PACK PO SCH ×2 (12:21→20:28)
[2021-03-24] MEDS: POTASSIUM CHLORIDE 10 MEQ TABCR PO SCH ×2 (12:21→20:28)
[2021-03-24] MEDS: TORSEMIDE 10 MG TAB PO SCH ×2 (12:21→17:31)
--- NOTE | 2021-03-24 21:07 | Hospitalist Progress Note ---
Date of Service March 24, 2021 Assessment & Plan (1) Small bowel obstruction: (2) Acute hyponatremia: (3) Shingles: Plan: #. Hyponatremia Admission sodium was 117 2/2 Dehydration with GI loss/nausea/vomiting with underlying SIADH. Nephrology on board: LR changed to NS at 50 ml/hr;added torsemide 20 mg BD/ KCl 10 mg BID/ Urea 15 gm BD on 03/24. Labs check q12h. FFR 1200 ml. Mx per Nephro #. Abdominal pain/Small bowel obstruction: Admitted with severe abdominal pain, CT abdomen pelvis showed dilated colon F/u XR KUB showed persistent dilatation of bowel with possible partial small bowel obstruction History of severe constipation, last colonoscopy was 2017 - had inflammatory polyp was on NG tube suction on admission , got dislodged, since there was no nausea/vomiting at the time hence not reinserted. Had multiple BM on 03/22 with last one on AM of 03/23 Pt again complained of no BM/flatus since 03/23 AM, increasing belly pain and bloating GI on board: Pt NPO, plan for Colonoscopy/Sigmoidoscopy tomorrow #. Shingles Per pt, she has had recurrent shingles since age 18 at different location - last location is on left buttock on and off for approx 10 years. She again had this shingles break out over the left buttock since 4 days ago but brought it up today. The clinical utility of initiating antiviral therapy more than 72 hours after the onset of lesions in immunocompetent persons is unknown. If further lesions development is noted, indicating ongoing viral replication, will consider valacyclovir. Advise to keep the lesions covered. Continue supportive management. Can opt for vaccination which is typically delayed by 1 year after recent shingles. No concrete recommendation is found. #. Sinus tachycardia 2/2 to dehydration and stress from partial bowel obstruction. improving, currently high normal Code Status: Full code DVT prophylaxis: SCD and teds patient is encouraged to ambulate Disposition: Expected to be discharged home when medically stable. She live with her . Admission and Anticipated Discharge Date Admission Date: March 20, 2021 Subjective Patient was sitting up in chair, NAD, on RA. Patient denies Headache, Dizziness, Fever, Chills, Sore throat, Cough, Chest pain, palpitations, SOB, pain/burning while passing urine. Last Bowel movement [Yesterday AM]. States that she again started feeling bloated, belly pain, hasn't passed BM or flatus since yesterday AM. Needed morphine Overnight for pain. Physical Exam Physical Exam: GENERAL: Alert and oriented x3. NAD, on RA. HEENT: No pallor, no icterus. Pupils equal, round and reactive to light. Oral mucosa moist. NECK: No JVD, no neck masses. HEART: S1 and S2 heard. Regular rate and rhythm. No murmur, no gallop. RESPIRATORY SYSTEM: Normal AP diameter. No accessory muscle use. No wheezing, no crackles. ABDOMEN: Soft, bowel sounds present, nontender, no distention. CENTRAL NERVOUS SYSTEM: Alert and oriented x3. No facial droop. Speech is clear. Obeys simple commands. Moves extremities. EXTREMITIES: No edema, no erythema seen. Has Shingles rash with clusters of vesicles over erythematous base. Results & Data Results & Data ([facility]) Vital Signs (Past 12 Hours) Vital Signs Temp Pulse Resp BP BP Pulse Ox 03/24/21 19:16 36.9 C 100 H 18 126/81 95 03/24/21 15:27 37.3 C 102 H 18 130/87 97 03/24/21 11:58 36.4 C L 85 18 153/81 H 97
[2021-03-24 23:19] LABS: BUN Creatinine Ratio 66.2 (10-20); Calcium 9.9 mg/dl (8.5-10.1); Creatinine Clr Calc Pharmacy 80.2 ml/min; Est GFR (African American) 115.5 ml/min; Est GFR (Non-African American) 99.6 ml/min; Potassium 3.5 mmol/L (3.5-5.1)
[2021-03-25] MEDS: DOXYCYCLINE HYCLATE 100 MG in DEXTROSE 5% 100 ML IV SCH ×2 (03:52→15:09)
[2021-03-25 07:44] LABS: BUN Creatinine Ratio 37.1 (10-20); Calcium 10.1 mg/dl (8.5-10.1); Creatinine Clr Calc Pharmacy 62.3 ml/min; Est GFR (African American) 98.8 ml/min; Est GFR (Non-African American) 85.3 ml/min; Potassium 3.6 mmol/L (3.5-5.1)
[2021-03-25] MEDS: SODIUM CHLORIDE 0.9% 1000ML 1,000 ML IV SCH (08:04)
--- NOTE | 2021-03-25 09:16 | Hospitalist Progress Note ---
Date of Service March 25, 2021 Assessment & Plan (1) Small bowel obstruction: (2) Acute hyponatremia: (3) Shingles: Plan: #. Hyponatremia Admission sodium was 117 2/2 Dehydration with GI loss/nausea/vomiting with underlying SIADH. Nephrology on board: c/w NS at 50 ml/hr;added torsemide 20 mg BD/ KCl 10 mg BID/ Urea 15 gm BD on 03/24 - c/w them. Labs check q12h. FFR 1200 ml. Mx per Nephro #. Abdominal pain/Small bowel obstruction: Admitted with severe abdominal pain, CT abdomen pelvis showed dilated colon F/u XR KUB showed persistent dilatation of bowel with possible partial small bowel obstruction History of severe constipation, last colonoscopy was 2017 - had inflammatory polyp was on NG tube suction on admission , got dislodged, since there was no nausea/vomiting at the time hence not reinserted. Had multiple BM on 03/22 with last one on AM of 03/23 Pt again complained of no BM/flatus since 03/23 AM, increasing belly pain and bloating, hence colonoscopy was planned 03/25 but cancelled due to active shingle s case on left buttock. GI on board: liquid diet, avoid narcotics, keep electrolytes wnl. maintain ambulation. Pt has tylenol prn for pain if needed. If acute pain, can use ketorolac iv. Avoid pain for concerns of recurrent SBO. Continue to monitor how she progresses with diet advancement. #. Shingles Per pt, she has had recurrent shingles since age 18 at different location - last location is on left buttock on and off for approx 10 years. She again had this shingles break out over the left buttock since 4 days ago but brought it up today. The clinical utility of initiating antiviral therapy more than 72 hours after the onset of lesions in immunocompetent persons is unknown. If further lesions development is noted, indicating ongoing viral replication, will consider valacyclovir. Advise to keep the lesions covered. Pt on isolation. Continue supportive management. Can opt for vaccination which is typically delayed by 1 year after recent shingles. No concrete recommendation is found. Message conveyed to the patient #. Sinus tachycardia 2/2 to dehydration and stress from partial bowel obstruction. improving, currently high normal Code Status: Full code DVT prophylaxis: SCD and teds patient is encouraged to ambulate Disposition: Expected to be discharged home when medically stable. She live with her . Admission and Anticipated Discharge Date Admission Date: March 20, 2021 Subjective Patient was lying in bed, NAD, on RA. Patient denies Headache, Dizziness, Fever, Chills, Sore throat, Cough, Chest pain, palpitations, SOB, pain/burning while passing urine. Had multiple bowel movements s/p enema x2. States that her bowel pain/bloating has gone down. Was able to sleep OK overnight. Getting colonoscopy/sigmoidoscopy today. Physical Exam Physical Exam: GENERAL: Alert and oriented x3. NAD, on RA. HEENT: No pallor, no icterus. Pupils equal, round and reactive to light. Oral mucosa moist. NECK: No JVD, no neck masses. HEART: S1 and S2 heard. Regular rate and rhythm. No murmur, no gallop. RESPIRATORY SYSTEM: Normal AP diameter. No accessory muscle use. No wheezing, no crackles. ABDOMEN: Soft, bowel sounds present, nontender, no distention. CENTRAL NERVOUS SYSTEM: Alert and oriented x3. No facial droop. Speech is clear. Obeys simple commands. Moves extremities. EXTREMITIES: No edema, no erythema seen. Has Shingles rash with clusters of vesicles over erythematous base. Results & Data Results & Data ([facility]) Vital Signs (Past 12 Hours) Vital Signs Temp Pulse Pulse Resp BP Pulse Ox 03/25/21 07:38 36.7 C 87 18 121/78 96 03/25/21 04:16 36.7 C 86 18 131/82 96 03/25/21 02:07 86 03/24/21 22:21 36.7 C 98 H 18 132/85 93
--- NOTE | 2021-03-25 09:59 | Nephrology Progress Note ---
Date of Service March 25, 2021 Assessment & Plan Admission and Anticipated Discharge Date Admission Date: March 20, 2021 Subjective NPO again. General exam: Appears comfortable, no acute distress. HEENT: Pupils are equal and reactive to light Neck: No JVD, neck is supple trachea is midline Respiratory system: Clear breath sounds bilaterally. Gastrointestinal: Generalized abdominal tenderness, bowel sounds are present CVS: Regular rate and rhythm. No murmurs, rubs or gallops Musculoskeletal: No joint or muscle tenderness Extremities: Non tender, no edema, peripheral pulses are present Neuro: Oriented, no tremors, no focal neurological deficits Skin: No rashes labs na 127 this am A/p Hyponatremia: sec to baseline SIADH with volume Depletion combination in setting of SBO Rec na rising in the begining but now has stalled at high 120's. expected as this is combination of SIADH with volume Depletion Continue NSS at 50 per hr. But this alone will not raise it further. Now we have to treat for SIADH also. Conitnue torsemide 20 bid with k.cl 10 bid Inappropriate high urine osm on repeat Urine Conitnue urea 15 gm bid. Given high BP no salt tab. Check labs again q12. Also FFR 1200 ml Results & Data ([facility]) Vital Signs (Past 12 Hours) Vital Signs Temp Pulse Pulse Resp BP Pulse Ox 03/25/21 07:38 36.7 C 87 18 121/78 96 03/25/21 04:16 36.7 C 86 18 131/82 96 03/25/21 02:07 86 03/24/21 22:21 36.7 C 98 H 18 132/85 93
[2021-03-25 11:26] LABS: BUN Creatinine Ratio 32.7 (10-20); Calcium 9.6 mg/dl (8.5-10.1); Creatinine Clr Calc Pharmacy 63.9 ml/min; Est GFR (African American) 102.1 ml/min; Est GFR (Non-African American) 88.1 ml/min; Potassium 3.6 mmol/L (3.5-5.1)
[2021-03-25] MEDS: ENOXAPARIN INJ 40 MG/0.4 ML SYR SQ SCH (11:28)
[2021-03-25] MEDS: POLYETHYLENE (MIRALAX) 17 GM PACK PO SCH ×2 (11:30→20:46)
[2021-03-25] MEDS: UREA (UREA-NA) 15 GM PACK PO SCH ×2 (11:30→20:46)
[2021-03-25] MEDS: TORSEMIDE 10 MG TAB PO SCH ×2 (11:30→17:22)
[2021-03-25] MEDS: POTASSIUM CHLORIDE 10 MEQ TABCR PO SCH ×2 (11:30→20:47)
--- NOTE | 2021-03-25 11:34 | Gastroenterology Progress Note ---
Date of Service March 25, 2021 Assessment & Plan (1) Constipation: Plan: 60 y/o female admitted with acute hyponatremia, abd discomfort, constipation; pt was tolerating diet and passing BMs, however yesterday developed more abdominal distention, colon somewhat more dilated on KUB yesterday. Plan was for colonoscopy today however due to active open shingles case was cancelled. After tap water enema x2, she is feeling much better, had good passage of stool, abdomen less distended, abdominal pain improved. She's on doxy for ? tick borne illness. Currently on airborne precautions due to shingles On exam, abd soft, nondistended, nontender today. Sodium continues to slowly improve, has stalled at 129 - Can try liquid diet; advance as tolerated - Recommend patient be on a daily bowel regimen including MiraLAX twice daily on a chronic basis to avoid constipation - Would try to limit narcotics as able - Monitor GI output - Continue to correct sodium - Keep potassium and magnesium level WNL - Encouraged ambulation as able - Pt would benefit from repeat full colonoscopy; last one was 2018 - had inflammatory polyp; this can be done on an outpt basis and has been ordered (2) Acute hyponatremia: Admission and Anticipated Discharge Date Admission Date: March 20, 2021 Supervising Physician Co-Signing Physician Notes I have personally seen and examined the patient with Marleen Evans PA-C. Her note reflects my exam and findings. I agree with her impression and plan. Patient on resp precautions now. Feeling significantly better after enemas. Flexi/colo cancelled. Advance diet and will arrange out patient full colonoscopy. Michael Hernandez M.D. Subjective Patient seen and examined, chart reviewed. After 2 enemas, patient feeling much better, has had several loose BMs, having much less abdominal pain and distention. No melena or hematochezia, hematemesis, fevers or chills, chest pain or shortness of breath. Unfortunately, has active shingles that are open and she is on airborne precautions currently. Review of Systems Review of Systems: All systems reviewed & are unremarkable except as noted in Subjective Physical Exam Constitutional: WD/WN, vitals as above Respiratory: normal respiratory effort Cardiovascular: Rate/Rhythm: regular rate and regular rhythm Gastrointestinal (Abdomen): Inspection/Auscultation: abdomen normal to inspection; abdomen not distended Percussion/Palpation: abdomen soft; abdomen nontender, no guarding and abdomen not rigid Normoactive bowel sounds x4 quads Skin: no rashes, warm and dry Psychiatric: A+Ox3, euthymic affect Results & Data ([facility]) Vital Signs (Past 12 Hours) Vital Signs Temp Pulse Pulse Resp BP Pulse Ox 03/25/21 11:01 36.8 C 91 H 19 134/85 97 03/25/21 10:30 108 H 03/25/21 07:38 36.7 C 87 18 121/78 96 03/25/21 04:16 36.7 C 86 18 131/82 96 03/25/21 02:07 86 Laboratory Results 03/25/21 03/25/21 03/24/21 Range/Units 10:24 06:33 22:33 Sodium 129 L 127 L 127 L (136-145) mmol/L Potassium 3.6 3.6 3.5 (3.5-5.1) mmol/L Chloride 92 L 90 L 88 L (98-107) mmol/L Carbon Dioxide 29 30 29 (21-32) mmol/L Anion Gap 8.0 6.0 10.0 (3-11) BUN 24 H 28 H 39 H D (7-18) mg/dl Creatinine 0.74 0.76 0.59 L (0.6-1.2) mg/dl Est Cr Clr Drug Dosing 63.9 62.3 80.2 ml/min Est GFR ( Amer) 102.1 98.8 115.5 ml/min Est GFR (Non-Af Amer) 88.1 85.3 99.6 ml/min BUN/Creatinine Ratio 32.7 H 37.1 H 66.2 H (10-20) Glucose 97 105 H 107 H (70-99) mg/dl Calcium 9.6 10.1 9.9 (8.5-10.1) mg/dl 03/24/21 Range/Units 10:35 Sodium 125 L (136-145) mmol/L Potassium 3.5 (3.5-5.1) mmol/L Chloride 90 L (98-107) mmol/L Carbon Dioxide 30 (21-32) mmol/L Anion Gap 5.0 (3-11) BUN 4 L (7-18) mg/dl Creatinine 0.56 L (0.6-1.2) mg/dl Est Cr Clr Drug Dosing 84.5 ml/min Est GFR ( Amer) 117.5 ml/min Est GFR (Non-Af Amer) 101.3 ml/min BUN/Creatinine Ratio 7.8 L (10-20) Glucose 119 H (70-99) mg/dl Calcium 9.6 (8.5-10.1) mg/dl
[2021-03-25 23:21] LABS: BUN Creatinine Ratio 73.9 (10-20); Calcium 9.6 mg/dl (8.5-10.1); Creatinine Clr Calc Pharmacy 64.8 ml/min; Est GFR (African American) 103.8 ml/min; Est GFR (Non-African American) 89.5 ml/min; Potassium 3.6 mmol/L (3.5-5.1)
[2021-03-26] MEDS: DOXYCYCLINE HYCLATE 100 MG in DEXTROSE 5% 100 ML IV SCH (02:17)
[2021-03-26] MEDS: SODIUM CHLORIDE 0.9% 1000ML 1,000 ML IV SCH (02:17)
[2021-03-26] MEDS: ACETAMINOPHEN 325 MG TAB PO PRN ×2 (04:54→12:18)
[2021-03-26] MEDS: ENOXAPARIN INJ 40 MG/0.4 ML SYR SQ SCH (08:33)
[2021-03-26] MEDS: UREA (UREA-NA) 15 GM PACK PO SCH (08:34)
[2021-03-26] MEDS: POLYETHYLENE (MIRALAX) 17 GM PACK PO SCH (08:34)
[2021-03-26] MEDS: TORSEMIDE 10 MG TAB PO SCH (08:51)
[2021-03-26 09:01] LABS: Magnesium 1.8 mg/dl (1.8-2.4)
[2021-03-26] MEDS: POTASSIUM CHLORIDE 10 MEQ TABCR PO SCH (09:16)
--- NOTE | 2021-03-26 09:44 | Hospitalist Progress Note ---
Date of Service March 26, 2021 Assessment & Plan (1) Small bowel obstruction: (2) Acute hyponatremia: (3) Shingles: Plan: #. Hyponatremia Admission sodium was 117 2/2 Dehydration with GI loss/nausea/vomiting with underlying SIADH. Nephrology on board: OK for DC on Fluid restriction 1200 ml /day. recommended continued torsemide 20 mg BD/ KCl 10 mg daily/ Urea 15 gm BD. Also recommended BMP in a week and f/u with them within a week. Na level today was 131 #. Abdominal pain/Small bowel obstruction: Admitted with severe abdominal pain, CT abdomen pelvis showed dilated colon F/u XR KUB showed persistent dilatation of bowel with possible partial small bowel obstruction History of severe constipation, last colonoscopy was 2017 - had inflammatory polyp was on NG tube suction on admission , got dislodged, since there was no nausea/vomiting at the time hence not reinserted. Had multiple BM on 03/22 with last one on AM of 03/23 Pt again complained of no BM/flatus since 03/23 AM, increasing belly pain and bloating, hence colonoscopy was planned 03/25 but cancelled due to active shingles case on left buttock. GI on board: liquid diet, avoid narcotics, keep electrolytes wnl. maintain ambulation. UPon discharge continue with bowel regimen, encourage ambulation, maintiain follow up with GI doctor for outpatient eval and colonoscopy. #. Shingles Per pt, she has had recurrent shingles since age 18 at different location - last location is on left buttock on and off for approx 10 years. She again had this shingles break out over the left buttock since 4 days ago but brought it up today. The clinical utility of initiating antiviral therapy more than 72 hours after the onset of lesions in immunocompetent persons is unknown. If further lesions development is noted, indicating ongoing viral replication, will consider valacyclovir. Advise to keep the lesions covered. Pt on isolation. Continue supportive management. Can opt for vaccination which is typically delayed by 1 year after recent shingles. No concrete recommendation is found. Message conveyed to the patient #. Sinus tachycardia 2/2 to dehydration and stress from partial bowel obstruction. improving, currently high normal Code Status: Full code DVT prophylaxis: SCD and teds patient is encouraged to ambulate while inpatient Disposition: Getting discharged today. Admission and Anticipated Discharge Date Admission Date: March 20, 2021 Subjective Patient was lying in bed, NAD, on RA. Patient denies Headache, Dizziness, Fever, Chills, Sore throat, Cough, Chest pain, palpitations, SOB, pain/burning while passing urine. Had multiple bowel movements s/p enema x2. States that her bowel pain/bloating has gone down on bowel regime. Was able to sleep OK overnight. Physical Exam Physical Exam: GENERAL: Alert and oriented x3. NAD, on RA. HEENT: No pallor, no icterus. Pupils equal, round and reactive to light. Oral mucosa moist. NECK: No JVD, no neck masses. HEART: S1 and S2 heard. Regular rate and rhythm. No murmur, no gallop. RESPIRATORY SYSTEM: Normal AP diameter. No accessory muscle use. No wheezing, no crackles. ABDOMEN: Soft, bowel sounds present, nontender, no distention. CENTRAL NERVOUS SYSTEM: Alert and oriented x3. No facial droop. Speech is clear. Obeys simple commands. Moves extremities. EXTREMITIES: No edema, no erythema seen. Her skin rash with central clearing (over left leg and belly) have faded. Has Shingles rash with clusters of vesicles over erythematous base. Results & Data Results & Data ([facility]) Vital Signs (Past 12 Hours) Vital Signs Temp Pulse Pulse Resp BP Pulse Ox 03/26/21 08:00 36.6 C 101 H 18 104/70 95 03/26/21 07:00 82 03/26/21 04:15 36.4 C L 96 H 18 106/65 96 03/26/21 00:10 37.1 C 92 H 18 104/70 94 03/25/21 23:48 86
--- NOTE | 2021-03-26 15:30 | Discharge Summary ---
Date of Service March 26, 2021 Admission HPI Per Admitting Provider CHIEF COMPLAINT: Abdominal pain and constipation. HISTORY OF PRESENT ILLNESS: A 60-year-old female with past medical history significant for constipation, presents with abdominal pain. The patient was here in the ER on 03/09/2021 with the same abdominal pain, bilateral flank pain, nausea and she was evaluated in the ER and CAT scan of the abdomen and pelvis and CT of the chest were done, which were mostly unremarkable except for some constipation and 5 mm pulmonary nodule and left side nephrolithiasis. The patient was discharged home to followup with PCP. She also saw her PCP, on p.o. lactulose. Still she says she did not move her bowels much since last 2 weeks.Had 2 enemas yesterday and she had a small amount of bowel movement, but not much significant. She is also having lot of nausea and she is not able to eat anything. Having abdominal pain which is about 8/10 in severity all over her belly. She came to the ER again today and found to have sodium of 114 and in the ER was given some fluids, before labs and repeat sodium after a couple of hours showed 117. Her sodium was 129 last time she was here in 03/09/2021. We do not have any recent lab work in the [facility]. Denies any blood in the stool. She says she has some hemorrhoids and some blood on the wipes but otherwise no significant bleeding. She is urinating ok but says urine looks somewhat different. No pain while micturating. No chest pain, no shortness of breath, no cough, no fever, no chills, no chest pain, no headache, no earache, no runny nose. She has some blurred vision, no sore throat. She says when she eats, she feels that food is stuck in her throat. Currently, hemodynamics are stable. ALLERGIES: PENICILLIN, SULFA ANTIBIOTICS, KEFLEX. PAST MEDICAL HISTORY: As mentioned above. PAST SURGICAL HISTORY: Biopsy of the left breast mass, colonoscopy, EGD, hysteroscopy, endometrial ablation, excision of sebaceous cyst, ligation of oviducts. MEDICATIONS: As per [facility], she is on Linzess 145 mcg p.o. daily, cyclobenzaprine 10 mg p.o. daily, lactulose 15 mL b.i.d. p.r.n., Zofran 8 mg p.o. q. 8 hours p.r.n., multivitamins 1 tablet daily, ibuprofen p.r.n. FAMILY HISTORY: Significant for sister has breast cancer; uncle has lymphoma; father has diabetes and diverticulitis; mother has diverticulitis and osteoporosis. SOCIAL HISTORY: . Quit smoking in 1989, smoked 1 pack a day for 10 year s. No alcohol use. No drug use. REVIEW OF SYSTEMS: As per HPI. Rest of review of systems is negative. Admission Exam Per Admitting Provider GENERAL: The patient is of moderate build, not in acute distress. VITAL SIGNS: Temperature 36.6, pulse 72, respiratory rate 18, blood pressure 115/86, oxygen 96% on room air. HEENT: Pupils equal, round and reactive to light. Oral mucosa moist. NECK: No JVD, no neck masses. HEART: S1 and S2 heard. Regular rate and rhythm. No murmur, no gallop. RESPIRATORY: Normal AP diameter. No accessory muscle use. No wheezing, no crackles. ABDOMEN: Soft, bowel sounds present. Diffuse tenderness, guarding present. No rigidity, no distention. CENTRAL NERVOUS SYSTEM: Cranial nerves II-XII grossly intact, nonfocal. EXTREMITIES: No edema, no erythema. Principal Diagnosis Hyponatremia 2/2 SIADH Recurrent constipation/partial SBO Shingles Discharge Exam as per today's progress note Discharge Data Allergies Allergy/AdvReac Type Severity Reaction Status Date / Time cephalexin [From Keflex] Allergy Severe CHEST Verified 03/24/21 10:11 TIGHTNESS SWELLING OF THROAT Penicillins Allergy Severe RASH HIVES Verified 03/20/21 00:08 Sulfa (Sulfonamide Allergy Severe RASH HIVES Verified 03/20/21 00:08 Antibiotics) sulfamethoxazole Allergy Severe RASH HIVES Verified 03/20/21 00:08 trimethoprim Allergy Severe RASH HIVES Verified 03/20/21 00:08 banana Allergy Unknown Unknown Verified 03/24/21 10:11 Consultations 03/20/21 09:32 Consult Gastroenterology Routine Consult Nephrology Routine 03/21/21 10:52 Consult General Surgery Routine Procedures Performed Operation Date: 03/21/21 19:00 <No data on this case meets the specified criteria> Operation Date: 03/25/21 16:30 <No data on this case meets the specified criteria> Ordered Studies 03/19/21 23:33 CT abd pelvis IV con only Urgent Hospital Course (1) Small bowel obstruction: (2) Acute hyponatremia: (3) Shingles: 60 yo F w/ h/o recurrent constipation, recurrent shingles, hyponatremia was managed in the floor for the following: #. Hyponatremia Admission sodium was 117 2/2 Dehydration with GI loss/nausea/vomiting with underlying SIADH. Nephrology on board: OK for DC on Fluid restriction 1200 ml /day. recommended continued torsemide 20 mg BD/ KCl 10 mg daily/ Urea 15 gm BD. Also recommended BMP in a week and f/u with them within a week. Na level today was 131 #. Abdominal pain/Small bowel obstruction: Admitted with severe abdominal pain, CT abdomen pelvis showed dilated colon F/u XR KUB showed persistent dilatation of bowel with possible partial small bowel obstruction History of severe constipation, last colonoscopy was 2017 - had inflammatory polyp was on NG tube suction on admission , got dislodged, since there was no nausea/vomiting at the time hence not reinserted. Had multiple BM on 03/22 with last one on AM of 03/23 Pt again complained of no BM/flatus since 03/23 AM, increasing belly pain and bloating, hence colonoscopy was planned 03/25 but cancelled due to active shingles case on left buttock. GI on board: liquid diet, avoid narcotics, keep electrolytes wnl. maintain ambulation. UPon discharge continue with bowel regimen, encourage ambulation, maintain follow up with GI doctor for outpatient eval and colonoscopy. #. Shingles Per pt, she has had recurrent shingles since age 18 at different location - last location is on left buttock on and off for approx 10 years. She again had this shingles break out over the left buttock since 4 days ago but brought it up today. The clinical utility of initiating antiviral therapy more than 72 hours after the onset of lesions in immunocompetent persons is unknown. If further lesions development is noted, indicating ongoing viral replication, will consider valacyclovir. Advise to keep the lesions covered. Pt on isolation. Continue supportive management. Can opt for vaccination which is typically delayed by 1 year after recent shingles. No concrete recommendation is found. Message conveyed to the patient #. Sinus tachycardia 2/2 to dehydration and stress from partial bowel obstruction. improving, currently high normal Code Status: Full code DVT prophylaxis: SCD and teds patient is encouraged to ambulate while inpatient Disposition: Getting discharged today. Following message has been communicated to the patient: Take laxative as recommended. Avoid narcotic pain meds. Encourage ambulation. Limit daily intake of fluid to 1200 ml (5 cups). Follow up PCP in a week's time. Have BMP done and forward to Nephro in a week's time. Follow up with Nephrology in a week's time. Keep Shingles rash covered until all lesions are crusted. Follow up with GI Doctor for possible outpatient colonoscopy. Total Time Total Time Spent Total Time Spent (In Minutes): 40 Discharge Plan Discharge Items Patient Disposition: Home - Self-Care Reason For Visit: abdominal pain Discharge Diagnosis: Hyponatremia 2/2 SIADH Recurrent constipation/partial SBO Shingles Activity: Resume your previous activity Non-emergency contact: Primary Care Provider Call non-emergency contact if: you have any medication questions Follow-up/Referrals: Migue Dewey MD [Primary Care Provider] - Diet: Regular Fluids: 1200ml (5 cups) Addtl Attending Provider Instructions: Take laxative as recommended. Avoid narcotic pain meds. Encourage ambulation. Limit daily intake of fluid to 1200 ml (5 cups). Follow up PCP in a week's time. Have BMP done and forward to Nephro in a week's time. Follow up with Nephrology in a week's time. Keep Shingles rash covered until all lesions are crusted. Follow up with GI Doctor for possible outpatient colonoscopy. Pending Studies at Discharge: Yes Studies:: 03/24 Anaplasma DNA Stand-Alone Forms: My [employer], Smoking Cessation Medications and DC Order Prescriptions: New doxycycline hyclate 100 mg Capsule 100 mg PO BID 9 Days Qty: 18 RF: 0 polyethylene glycol 3350 [Miralax] 17 gram Powder In Packet 17 g PO BID 30 Days Qty: 30 RF: 0 torsemide 10 mg Tablet 20 mg PO BID17 30 Days Qty: 60 RF: 0 potassium chloride [Klor-Con M10] 10 mEq Tablet,Er Particles/Crystals 10 meq PO DAILY 30 Days Qty: 30 RF: 0 Ure-Na 15 gram Powder In Packet 15 g PO BID 30 Days Qty: 30 RF: 0 Continued multivitamin Tablet 1 tab PO DAILY RF: 0 calcium carbonate [Calcium 500] 500 mg calcium (1,250 mg) Tablet 500 mg PO DAILY RF: 0 ibuprofen 200 mg Tablet 600 mg PO Q6H PRN (Reason: Pain) RF: 0 cyclobenzaprine 10 mg tablet 10 mg PO TID PRN (Reason: muscle spasm) Qty: 14 RF: 0 Discontinued 4 Restore 1 tab PO DAILY RF: 0 Balance D Vit 5 - 7 tabs PO DAILY RF: 0 Eternity Liq 2.5 ml PO DAILY RF: 0 Influence Vit 1 tab PO DAILY RF: 0 Innerchi Vit 1 tab PO DAILY RF: 0 Renorvator 2 1 tab PO DAILY RF: 0 Vital Vision Tab 1 tab PO DAILY RF: 0 Discharge Orders: Discharge Order (Routine); Ordered 03/26/21 Ordered By: Isaac Sanchez Admission Data Admit Date/Time: 03/20/21 03:41 Attending Provider: Isaac Sanchez Admit Provider: Marcelino Dean Primary Care Provider: Migue Dewey Other Providers: Jailyn Muller ; Marleen Evans ; Haleigh Nur ; Kalpana Sanchez ; Chele Rivers ; Kwesi Leigh ; Favio Ibarra ; Michael Falcon ; Estee Loera ; Jerrica Castellano ; Leena Rowley ; Tomasa Razo ; Lakesha Melgoza ; Keli Lopez ; Freddie Marc ; Christina Tapia ; Kayla Mccarthy ; Shelli Burgos ; Varghese Monroy ; Marcelino Dean ; Dimas Parisi ; Migue Trujillo ; Lela Calderon ; Vandana Leigh ; Zackery Lopes ; Srinivas Hernandez ; Vianca Dumont ; Marleen Mercer ; Aguilar Benavides Jr ; Klarissa Garcia ; Servando Rodriguez ; Tomasa Thacker Other Interventions: Discharge Summary Assessment (RN) Last Done: 03/26/21 14:02
[2021-03-26] MEDS ORDERED: DOXYCYCLINE HYCLATE 100 MG CAP PO SCH (21:00)
== END 2021-03-26 15:30 | disposition home or self-care (01) | DRG 644 ==
LOC: ED 23:09 → 2W 03-20 03:41 → SUATTDRO 03-20 03:41 → 2W 03-20 08:22 → 2N 03-25 03:50